=== PATIENT | female | born 1965 | race Caucasian/White ===

== ENCOUNTER 2016-06-23 22:53 | Emergency (ER) | payer MEDICARE, MEDICAID ==
[~2016-06-23 22:53] MED LIST: /PANT40TA OR; /PROM25SU RE; LAMICTAL PO; LITH300T2 OR; PROM12SU RE; SYNT100T OR
[2016-06-23] MEDS ORDERED: NORCO, ANEXSIA 5/325MG TABLET (HYDROcodone/ACETAMINOPHEN) As Ordered ONE (23:26)
--- NOTE | 2016-06-23 23:56 | EDDOCDS ---
Nurse's Notes [facility] Name: Sameera Montoya Age: 51 yrs Sex: Female : 1965 Arrival Date: 06/23/2016 Time: 22:53 Bed I1 / M1 Private MD: Damien Velásquez FPA Diagnosis: Other sprain of left index finger Presentation: 06/23 23:02 Presenting complaint: Patient states: "My finger it's swollen. I'm having a lot of pain mb9 in my finger. I've had a fungal infection in that finger before. I saw my doctor on Wednesday and he wasn't sure what to do with it". pt reports she fell last Wednesday and injured her finger. Adult Sepsis Screening: The patient does not have new or worsening altered mentation. Patient's respiratory rate is less than 22. Systolic blood pressure is greater than 100. Patient has a qSOFA score of 0- Negative Sepsis Screen. Suicide/Homicide risk assessment- the patient denies having any suicidal and/or homicidal ideations and does not present with any other emotional, behavioral or mental health complaints. Status: Patient is not a healthcare customer service or dependent. Transition of care: patient was not received from another setting of care. 23:02 Acuity: ROMY Level 4 mb9 23:02 Method Of Arrival: Walkin/Carried/Asstd mb9 Triage Assessment: 23:14 General: Appears in no apparent distress, Behavior is appropriate for age, cooperative. mb9 Pain: Location: dorsal aspect of distal phalanx of left index finger, dorsal aspect of middle phalanx of left index finger, dorsal aspect of proximal phalanx of left index finger and left index fingernail Pain currently is 8 out of 10 on a pain scale. HIV screening NA for this visit Offered previously. Musculoskeletal: Range of motion limited in DIP of left index finger and PIP of left index finger Swelling present in dorsal aspect of distal phalanx of left index finger, dorsal aspect of middle phalanx of left index finger and dorsal aspect of proximal phalanx of left index finger. 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 Tirosint 137 mcg oral cap 1 cap once daily 2. hydrochlorothiazide 12.5 mg Oral cap 1 cap once daily 3. arapepazole 20 mg twice a day 4. Vitamin B-12 500 mcg Oral tab every other day 5. montelukast 10 mg oral tab 1 tab once daily 6. magnesium oxide 400 mg Oral cap twice a day 7. sumatriptan succinate 4 mg/0.5 mL Sub-Q crtg for Migraine 8. azelastine 0.15 % (205.5 mcg) nasal spry 1 spray 2 times per day 9. lithium carbonate 300 mg Oral cap 2 caps bid 10. lithium carbonate 150 mg Oral cap bid 11. Lamictal 100 mg Oral tab 1 tab 2 times per day 12. Topamax 150 mg Oral Unknown 2 times per day 13. Wellbutrin 75 mg Oral tab 1 tab twice a day 14. clonazepam 0.5 mg Oral tab - PMHx: Agoraphobia; Asthma; Bipolar disorder; IBS; Migraines; neuropathy; Panic Attacks; Seasonal Allergies; - PSHx: Orthopedic Surgery; eye surgery; Tonsillectomy; Hysterectomy; Cholecystectomy; Gastric Bypass (2009); Gastric bypass revision; - Social history: Smoking status: Patient states former smoker of tobacco. No barriers to communication noted, The patient speaks fluent Italian. - Family history: Not pertinent. - : The pt / caregiver states he / she is not on anticoagulants. Home medication list is obtained from the patient. - Exposure Risk Screening:: None identified. Screenin:30 Screening information is obtained from the patient. Fall risk: No risks identified. ko2 Assistance ADL's: requires no assistance with activities of daily living. Abuse/DV Screen: The patient / caregiver reports he/she is: not in a situation that causes fear, pain or injury. Nutritional screening: No deficits noted. Advance Directives: Currently, there is no health care proxy. There is no active DNR order. There is no living will. There is no Power of Matte Cutter. home support is adequate. Assessment: 23:29 General: Appears in no apparent distress, comfortable, Behavior is appropriate for age, ko2 cooperative. Pain: Location: left hand Pain currently is 7 out of 10 on a pain scale. Neurological: Level of Consciousness is awake, alert, Oriented to person, place, time. Respiratory: Airway is patent Respiratory effort is even, unlabored, Respiratory pattern is regular, symmetrical. Derm: Swollen area noted on left index finger. 23:53 General: Appears in no apparent distress, comfortable, Behavior is appropriate for age, nn1 cooperative. Pain: Location: left index fingernail Pain currently is 7 out of 10 on a pain scale. Neurological: Level of Consciousness is awake, alert. Respiratory: No deficits noted. Derm: Skin is pink, warm & dry. Swollen area noted on left index finger. Vital Signs: 22:56 BP 172 / 87; Pulse 77; Resp 18 S; Temp 96.7(T); Pulse Ox 99% on R/A; Weight 78.93 kg dd6 (R); Height 5 ft. 3 in. (160.02 cm) (R); 22:56 Body Mass Index 30.82 (78.93 kg, 160.02 cm) dd6 Vitals: 22:56 Log In Time: June 23, 2016 at 22:54. dd6 ED Course: 22:56 Patient visited by Vishnu Thompson PCA. dd6 22:56 Damien Velásquez is Private Physician. dd6 22:56 Patient moved to Waiting dd6 22:57 Patient moved to Pre RCE dd6 23:07 Triage Initiated mb9 23:18 Damien Murphy PA is PHCP. mo1 23:18 Pepe Perez MD is Attending Physician. mo1 23:18 Patient moved to I1 / M1 lf1 23:23 Patient visited by Damien Murphy PA. mo1 23:30 Patient visited by Ary Pastrana RN. ko2 23:30 The patient / caregiver is instructed regarding the plan of care and ED course. ko2 23:41 [facility] Payment Agreement was scanned into [employer] and attached to record. pm4 23:42 Damien Velásquez is Referral Physician. mo1 23:42 Kyle Silva is Referral Physician. mo1 23:54 No IV's were initiated during this patient's visit. No procedures done that require nn1 assistance. left index finger deepa taped to left middle finger. Administered Medications: 23:28 Drug: HYDROcodone-acetaminophen 1 tabs [hydrocodone 5 mg-acetaminophen 325 mg tablet (1 ko2 tabs)] Route: PO; Order Results: There are currently no results for this order. Outcome: 23:43 Discharge ordered by Provider. mo1 23:55 Discharge Assessment: Patient awake, alert and oriented x 3. No cognitive and/or nn1 functional deficits noted. Patient verbalized understanding of disposition instructions. patient administered narcotics -. Discharge Assessment: patient administered narcotics - yes. Pt provided with safe discharge. The following High Risk Discharge criteria are identified: None. Discharged to home ambulatory. Condition: good Condition: stable Condition: unchanged. No special radiology studies were completed. Property :Personal belongings accompany Pt. 23:55 Patient left the ED. nn1 Signatures: Lilly Roberto,RN RN lf1 Vishnu Thompson, [employer]ACING [employer]ACHINE [employer]PERAT[employer] RES[employer]ING [employer]ACH[employer]PER[employer] dd6 Damien Murphy PA PA mo1 Ary PastranaRN RN ko2 Damien Spencer,RN RN mb9 Nilesh PaigeRN RN nn1 Maurisio Mendoza, Reg Reg pm4 MTDVanda
--- NOTE | 2016-06-23 23:56 | EDDOCDS ---
Physician Documentation [facility] Name: Sameera Montoya Age: 51 yrs Sex: Female : 1965 Arrival Date: 06/23/2016 Time: 22:53 Bed I1 / M1 Private MD: Damien Velásquez FPA Disposition: 06/23/16 23:43 Discharged to Home/Self Care. Impression: Other sprain of left index finger. - Condition is Stable. - Discharge Instructions: Finger Sprain. - Prescriptions for Ibuprofen 800 mg Oral Tablet - take 1 tablet by ORAL route every 8 hours As needed take with food; 30 tablet. - Medication Reconciliation, Local Pharmacy Hours form. - Follow up: Damien Velásquez; When: Call to arrange an appointment; Reason: Recheck today's complaints, Continuance of care. Follow up: Kyle Silva; When: Call to arrange an appointment; Reason: Recheck today's complaints, Continuance of care. - Problem is an ongoing problem. - Symptoms are unchanged. Historical: - Allergies: PENICILLINS; - Home Meds: 1. Tirosint 137 mcg oral cap 1 cap once daily 2. hydrochlorothiazide 12.5 mg Oral cap 1 cap once daily 3. arapepazole 20 mg twice a day 4. Vitamin B-12 500 mcg Oral tab every other day 5. montelukast 10 mg oral tab 1 tab once daily 6. magnesium oxide 400 mg Oral cap twice a day 7. sumatriptan succinate 4 mg/0.5 mL Sub-Q crtg for Migraine 8. azelastine 0.15 % (205.5 mcg) nasal spry 1 spray 2 times per day 9. lithium carbonate 300 mg Oral cap 2 caps bid 10. lithium carbonate 150 mg Oral cap bid 11. Lamictal 100 mg Oral tab 1 tab 2 times per day 12. Topamax 150 mg Oral Unknown 2 times per day 13. Wellbutrin 75 mg Oral tab 1 tab twice a day 14. clonazepam 0.5 mg Oral tab - PMHx: Agoraphobia; Asthma; Bipolar disorder; IBS; Migraines; neuropathy; Panic Attacks; Seasonal Allergies; - PSHx: Orthopedic Surgery; eye surgery; Tonsillectomy; Hysterectomy; Cholecystectomy; Gastric Bypass (2009); Gastric bypass revision; - Social history: Smoking status: Patient states former smoker of tobacco. No barriers to communication noted, The patient speaks fluent Amharic. - Family history: Not pertinent. - : The pt / caregiver states he / she is not on anticoagulants. Home medication list is obtained from the patient. - Exposure Risk Screening:: None identified. 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 3 in. (160.02 cm) (R); 22:56 Body Mass Index 30.82 (78.93 kg, 160.02 cm) dd6 MDM: 23:24 HYDROcodone-acetaminophen 5 mg-325 mg 1 tabs PO once ordered. mo1 23:25 Fingers Ordered. EDMS 23:36 Financial registration complete. pm4 23:41 [facility] Payment Agreement was scanned into [employer] and attached to record. pm4 23:42 Splint ordered. mo1 Administered Medications: 23:28 Drug: HYDROcodone-acetaminophen 1 tabs [hydrocodone 5 mg-acetaminophen 325 mg tablet (1 ko2 tabs)] Route: PO; Signatures: Dispatcher [employer] EDMS Damien Murphy PA PA mo1 Ary PastranaRN RN ko2 Damien Spencer,RN RN mb9 Nilesh PaigeRN RN nn1 Maurisio Mendoza, Reg Reg pm4 The chart was reviewed and I authenticate all verbal orders and agree with the evaluation and treatment provided.Attachments: 23:41 [facility] Payment Agreement pm4 MTDD
--- NOTE | 2016-06-24 08:29 | REP ---
LEFT INDEX FINGER SERIES: Four views. HISTORY: Left index finger trauma. FINDINGS: There is soft tissue swelling diffusely about the index finger. There is diffuse osteopenia. No fracture, subluxation, or opaque foreign body is seen. IMPRESSION: Soft-tissue swelling and diffuse osteopenia. No fracture seen. Signed by Kadeem Lebron MD 06/24/2016 09:40 A
--- NOTE | 2016-06-26 00:57 | EDDOCDS ---
Nurse's Notes [facility] Name: Sameera Montoya Age: 51 yrs Sex: Female : 1965 Arrival Date: 06/23/2016 Time: 22:53 Bed I1 / M1 Private MD: Damien Velásquez FPA Diagnosis: Other sprain of left index finger Presentation: 06/23 23:02 Presenting complaint: Patient states: "My finger it's swollen. I'm having a lot of pain mb9 in my finger. I've had a fungal infection in that finger before. I saw my doctor on Wednesday and he wasn't sure what to do with it". pt reports she fell last Wednesday and injured her finger. Adult Sepsis Screening: The patient does not have new or worsening altered mentation. Patient's respiratory rate is less than 22. Systolic blood pressure is greater than 100. Patient has a qSOFA score of 0- Negative Sepsis Screen. Suicide/Homicide risk assessment- the patient denies having any suicidal and/or homicidal ideations and does not present with any other emotional, behavioral or mental health complaints. Status: Patient is not a customer service administrator or dependent. Transition of care: patient was not received from another setting of care. 23:02 Acuity: ROMY Level 4 mb9 23:02 Method Of Arrival: Walkin/Carried/Asstd mb9 Triage Assessment: 23:14 General: Appears in no apparent distress, Behavior is appropriate for age, cooperative. mb9 Pain: Location: dorsal aspect of distal phalanx of left index finger, dorsal aspect of middle phalanx of left index finger, dorsal aspect of proximal phalanx of left index finger and left index fingernail Pain currently is 8 out of 10 on a pain scale. HIV screening NA for this visit Offered previously. Musculoskeletal: Range of motion limited in DIP of left index finger and PIP of left index finger Swelling present in dorsal aspect of distal phalanx of left index finger, dorsal aspect of middle phalanx of left index finger and dorsal aspect of proximal phalanx of left index finger. 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 Tirosint 137 mcg oral cap 1 cap once daily 2. hydrochlorothiazide 12.5 mg Oral cap 1 cap once daily 3. arapepazole 20 mg twice a day 4. Vitamin B-12 500 mcg Oral tab every other day 5. montelukast 10 mg oral tab 1 tab once daily 6. magnesium oxide 400 mg Oral cap twice a day 7. sumatriptan succinate 4 mg/0.5 mL Sub-Q crtg for Migraine 8. azelastine 0.15 % (205.5 mcg) nasal spry 1 spray 2 times per day 9. lithium carbonate 300 mg Oral cap 2 caps bid 10. lithium carbonate 150 mg Oral cap bid 11. Lamictal 100 mg Oral tab 1 tab 2 times per day 12. Topamax 150 mg Oral Unknown 2 times per day 13. Wellbutrin 75 mg Oral tab 1 tab twice a day 14. clonazepam 0.5 mg Oral tab - PMHx: Agoraphobia; Asthma; Bipolar disorder; IBS; Migraines; neuropathy; Panic Attacks; Seasonal Allergies; - PSHx: Orthopedic Surgery; eye surgery; Tonsillectomy; Hysterectomy; Cholecystectomy; Gastric Bypass (2009); Gastric bypass revision; - Social history: Smoking status: Patient states former smoker of tobacco. No barriers to communication noted, The patient speaks fluent Bhutanese. - Family history: Not pertinent. - : The pt / caregiver states he / she is not on anticoagulants. Home medication list is obtained from the patient. - Exposure Risk Screening:: None identified. Screenin:30 Screening information is obtained from the patient. Fall risk: No risks identified. ko2 Assistance ADL's: requires no assistance with activities of daily living. Abuse/DV Screen: The patient / caregiver reports he/she is: not in a situation that causes fear, pain or injury. Nutritional screening: No deficits noted. Advance Directives: Currently, there is no health care proxy. There is no active DNR order. There is no living will. There is no Power of Lieutenant Firefighter. home support is adequate. Assessment: 23:29 General: Appears in no apparent distress, comfortable, Behavior is appropriate for age, ko2 cooperative. Pain: Location: left hand Pain currently is 7 out of 10 on a pain scale. Neurological: Level of Consciousness is awake, alert, Oriented to person, place, time. Respiratory: Airway is patent Respiratory effort is even, unlabored, Respiratory pattern is regular, symmetrical. Derm: Swollen area noted on left index finger. 23:53 General: Appears in no apparent distress, comfortable, Behavior is appropriate for age, nn1 cooperative. Pain: Location: left index fingernail Pain currently is 7 out of 10 on a pain scale. Neurological: Level of Consciousness is awake, alert. Respiratory: No deficits noted. Derm: Skin is pink, warm & dry. Swollen area noted on left index finger. Vital Signs: 22:56 BP 172 / 87; Pulse 77; Resp 18 S; Temp 96.7(T); Pulse Ox 99% on R/A; Weight 78.93 kg dd6 (R); Height 5 ft. 3 in. (160.02 cm) (R); 22:56 Body Mass Index 30.82 (78.93 kg, 160.02 cm) dd6 Vitals: 22:56 Log In Time: June 23, 2016 at 22:54. dd6 ED Course: 22:56 Patient visited by Vishnu Thompson PCA. dd6 22:56 Damien Velásquez is Private Physician. dd6 22:56 Patient moved to Waiting dd6 22:57 Patient moved to Pre RCE dd6 23:07 Triage Initiated mb9 23:18 Damien Murphy PA is PHCP. mo1 23:18 Pepe Perez MD is Attending Physician. mo1 23:18 Patient moved to I1 / M1 lf1 23:23 Patient visited by Damien Murphy PA. mo1 23:30 Patient visited by Ary Pastrana RN. ko2 23:30 The patient / caregiver is instructed regarding the plan of care and ED course. ko2 23:41 [facility] Payment Agreement was scanned into [employer] and attached to record. pm4 23:42 Damien Velásquez is Referral Physician. mo1 23:42 Kyle Silva is Referral Physician. mo1 23:54 No IV's were initiated during this patient's visit. No procedures done that require nn1 assistance. left index finger deepa taped to left middle finger. 06/24 02:25 T-Sheet-- Draft Copy was scanned into [employer] and attached to record. hs2 08:43 Fingers Returned. EDMS Administered Medications: 06/23 23:28 Drug: HYDROcodone-acetaminophen 1 tabs [hydrocodone 5 mg-acetaminophen 325 mg tablet (1 ko2 tabs)] Route: PO; Order Results: Radiology Order: Fingers Test: Fingers REASON FOR EXAMINATION: left index trauma; LEFT INDEX FINGER SERIES: Four views.; ; HISTORY: Left index finger trauma.; ; FINDINGS: There is soft tissue swelling diffusely about the index finger. There; is diffuse osteopenia. No fracture, subluxation, or opaque foreign body is; seen.; ; IMPRESSION: Soft-tissue swelling and diffuse osteopenia. No fracture seen.; ; ; Signed by; Kadeem Lebron MD 06/24/2016 09:40 A; Outcome: 23:43 Discharge ordered by Provider. mo1 23:55 Discharge Assessment: Patient awake, alert and oriented x 3. No cognitive and/or nn1 functional deficits noted. Patient verbalized understanding of disposition instructions. patient administered narcotics -. Discharge Assessment: patient administered narcotics - yes. Pt provided with safe discharge. The following High Risk Discharge criteria are identified: None. Discharged to home ambulatory. Condition: good Condition: stable Condition: unchanged. No special radiology studies were completed. Property :Personal belongings accompany Pt. 23:55 Patient left the ED. nn1 Signatures: Dispatcher [employer] EDMS Lilly Roberto,RN RN lf1 Vishnu Thompson, KAIWHAKAHAERE KAIWHAKAHAERE dd6 Damien Murphy PA PA mo1 Ary Pastrana RN RN ko2 Damien Spencer,TOOTIE RN [id number] Nilesh Paige RN RN nn1 Kenia Rosales, Reg Reg hs2 Maurisio Mendoza, Reg Reg pm4 Chart Complete MTDD
--- NOTE | 2016-06-26 00:57 | EDDOCDS ---
Physician Documentation [facility] Name: Sameera Montoya Age: 51 yrs Sex: Female : 1965 Arrival Date: 06/23/2016 Time: 22:53 Bed I1 / M1 Private MD: Damien Velásquez FPA Disposition: 06/23/16 23:43 Discharged to Home/Self Care. Impression: Other sprain of left index finger. - Condition is Stable. - Discharge Instructions: Finger Sprain. - Prescriptions for Ibuprofen 800 mg Oral Tablet - take 1 tablet by ORAL route every 8 hours As needed take with food; 30 tablet. - Medication Reconciliation, Local Pharmacy Hours form. - Follow up: Damien Velásquez; When: Call to arrange an appointment; Reason: Recheck today's complaints, Continuance of care. Follow up: Kyle Silva; When: Call to arrange an appointment; Reason: Recheck today's complaints, Continuance of care. - Problem is an ongoing problem. - Symptoms are unchanged. Historical: - Allergies: PENICILLINS; - Home Meds: 1. Tirosint 137 mcg oral cap 1 cap once daily 2. hydrochlorothiazide 12.5 mg Oral cap 1 cap once daily 3. arapepazole 20 mg twice a day 4. Vitamin B-12 500 mcg Oral tab every other day 5. montelukast 10 mg oral tab 1 tab once daily 6. magnesium oxide 400 mg Oral cap twice a day 7. sumatriptan succinate 4 mg/0.5 mL Sub-Q crtg for Migraine 8. azelastine 0.15 % (205.5 mcg) nasal spry 1 spray 2 times per day 9. lithium carbonate 300 mg Oral cap 2 caps bid 10. lithium carbonate 150 mg Oral cap bid 11. Lamictal 100 mg Oral tab 1 tab 2 times per day 12. Topamax 150 mg Oral Unknown 2 times per day 13. Wellbutrin 75 mg Oral tab 1 tab twice a day 14. clonazepam 0.5 mg Oral tab - PMHx: Agoraphobia; Asthma; Bipolar disorder; IBS; Migraines; neuropathy; Panic Attacks; Seasonal Allergies; - PSHx: Orthopedic Surgery; eye surgery; Tonsillectomy; Hysterectomy; Cholecystectomy; Gastric Bypass (2009); Gastric bypass revision; - Social history: Smoking status: Patient states former smoker of tobacco. No barriers to communication noted, The patient speaks fluent Korean. - Family history: Not pertinent. - : The pt / caregiver states he / she is not on anticoagulants. Home medication list is obtained from the patient. - Exposure Risk Screening:: None identified. 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 3 in. (160.02 cm) (R); 22:56 Body Mass Index 30.82 (78.93 kg, 160.02 cm) dd6 MDM: 23:24 HYDROcodone-acetaminophen 5 mg-325 mg 1 tabs PO once ordered. mo1 23:25 Fingers Ordered. EDMS 23:36 Financial registration complete. pm4 23:41 [facility] Payment Agreement was scanned into [employer] and attached to record. pm4 23:42 Splint ordered. mo1 06/24 02:25 T-Sheet-- Draft Copy was scanned into [employer] and attached to record. hs2 Administered Medications: 06/23 23:28 Drug: HYDROcodone-acetaminophen 1 tabs [hydrocodone 5 mg-acetaminophen 325 mg tablet (1 ko2 tabs)] Route: PO; Signatures: Dispatcher [employer] EDMS Damien Murphy PA PA mo1 Ary Pastrana RN RN ko2 Damien Spencer RN RN mb9 Nilesh Paige RN RN nn1 Kenia Rosales, Reg Reg hs2 Maurisio Mendoza, Reg Reg pm4 The chart was reviewed and I authenticate all verbal orders and agree with the evaluation and treatment provided.Attachments: 23:41 [facility] Payment Agreement pm4 06/24 02:25 T-Sheet-- Draft Copy hs2 Chart Complete MTDD
--- NOTE | 2016-06-26 00:57 | EDDOCDS ---
Physician Documentation [facility] Name: Sameera Montoya Age: 51 yrs Sex: Female : 1965 Arrival Date: 06/23/2016 Time: 22:53 Bed I1 / M1 Private MD: Damien Velásquez FPA Disposition: 06/23/16 23:43 Discharged to Home/Self Care. Impression: Other sprain of left index finger. - Condition is Stable. - Discharge Instructions: Finger Sprain. - Prescriptions for Ibuprofen 800 mg Oral Tablet - take 1 tablet by ORAL route every 8 hours As needed take with food; 30 tablet. - Medication Reconciliation, Local Pharmacy Hours form. - Follow up: Damien Velásquez; When: Call to arrange an appointment; Reason: Recheck today's complaints, Continuance of care. Follow up: Kyle Silva; When: Call to arrange an appointment; Reason: Recheck today's complaints, Continuance of care. - Problem is an ongoing problem. - Symptoms are unchanged. Historical: - Allergies: PENICILLINS; - Home Meds: 1. Tirosint 137 mcg oral cap 1 cap once daily 2. hydrochlorothiazide 12.5 mg Oral cap 1 cap once daily 3. arapepazole 20 mg twice a day 4. Vitamin B-12 500 mcg Oral tab every other day 5. montelukast 10 mg oral tab 1 tab once daily 6. magnesium oxide 400 mg Oral cap twice a day 7. sumatriptan succinate 4 mg/0.5 mL Sub-Q crtg for Migraine 8. azelastine 0.15 % (205.5 mcg) nasal spry 1 spray 2 times per day 9. lithium carbonate 300 mg Oral cap 2 caps bid 10. lithium carbonate 150 mg Oral cap bid 11. Lamictal 100 mg Oral tab 1 tab 2 times per day 12. Topamax 150 mg Oral Unknown 2 times per day 13. Wellbutrin 75 mg Oral tab 1 tab twice a day 14. clonazepam 0.5 mg Oral tab - PMHx: Agoraphobia; Asthma; Bipolar disorder; IBS; Migraines; neuropathy; Panic Attacks; Seasonal Allergies; - PSHx: Orthopedic Surgery; eye surgery; Tonsillectomy; Hysterectomy; Cholecystectomy; Gastric Bypass (2009); Gastric bypass revision; - Social history: Smoking status: Patient states former smoker of tobacco. No barriers to communication noted, The patient speaks fluent Korean. - Family history: Not pertinent. - : The pt / caregiver states he / she is not on anticoagulants. Home medication list is obtained from the patient. - Exposure Risk Screening:: None identified. 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 3 in. (160.02 cm) (R); 22:56 Body Mass Index 30.82 (78.93 kg, 160.02 cm) dd6 MDM: 23:24 HYDROcodone-acetaminophen 5 mg-325 mg 1 tabs PO once ordered. mo1 23:25 Fingers Ordered. EDMS 23:36 Financial registration complete. pm4 23:41 [facility] Payment Agreement was scanned into [employer]un[employer] and attached to record. pm4 23:42 Splint ordered. mo1 06/24 02:25 T-Sheet-- Draft Copy was scanned into [employer]un[employer] and attached to record. hs2 Administered Medications: 06/23 23:28 Drug: HYDROcodone-acetaminophen 1 tabs [hydrocodone 5 mg-acetaminophen 325 mg tablet (1 ko2 tabs)] Route: PO; Signatures: Dispatcher [employer] EDMS Damien Murphy PA PA mo1 Ary Pastrana RN RN ko2 Damien Spencer RN RN mb9 Nilesh Paige RN RN nn1 Kenia Rosales, Reg Reg hs2 Maurisio Mendoza, Reg Reg pm4 The chart was reviewed and I authenticate all verbal orders and agree with the evaluation and treatment provided.Attachments: 23:41 [facility] Payment Agreement pm4 06/24 02:25 T-Sheet-- Draft Copy hs2 Chart Complete MTDD
== END 2016-06-23 23:55 | disposition home or self-care (01) ==
LOC: M ED 22:53
DX: S63.611A Unspecified sprain of left index finger, initial encounter (principal); W19.XXXA Unspecified fall, initial encounter; Y92.019 Unspecified place in single-family (private) house as the place of occurrence of the external cause; Y93.89 Activity, other specified; Y99.8 Other external cause status; F40.00 Agoraphobia, unspecified; J45.909 Unspecified asthma, uncomplicated; F31.9 Bipolar disorder, unspecified; K58.9 Irritable bowel syndrome, unspecified; G43.909 Migraine, unspecified, not intractable, without status migrainosus; G60.9 Hereditary and idiopathic neuropathy, unspecified; Z98.84 Bariatric surgery status; Z79.899 Other long term (current) drug therapy; Z88.0 Allergy status to penicillin; Z87.891 Personal history of nicotine dependence

== ENCOUNTER 2016-08-24 11:45 | Outpatient (RCR) | payer MEDICARE, MEDICAID | END 2016-08-28 | LOC: M PT 11:45 | PROVIDERS: ATTEND Psychiatry & Neurology Neurology | DX: Z51.89 Encounter for other specified aftercare (principal); R26.81 Unsteadiness on feet | CPT/HCPCS: 97110; 97161; G8978; G8979 ==

== ENCOUNTER 2016-09-23 07:50 | Outpatient (RCR) | payer MEDICARE, MEDICAID | END 2016-09-27 | disposition home or self-care (01) | LOC: M PT 07:50 | PROVIDERS: ATTEND Psychiatry & Neurology Neurology | DX: Z51.89 Encounter for other specified aftercare (principal); R26.81 Unsteadiness on feet | CPT/HCPCS: 97110; 97112; 97140; G8979; G8980 ==

== ENCOUNTER → 2016-12-22 | Outpatient (CLI) | payer MEDICARE, MEDICAID ==
[2016-12-22 06:57] LABS: BASO # 0.1 K/mm3 (0.0-0.2); BASO % 0.9 % (0.0-1.0); EOS # 0.3 K/mm3 (0.0-0.50); EOS % 4.1 % (0.0-3.0); LARGE UNSTAINED CELL # 0.1 K/mm3 (0.0-0.4); LARGE UNSTAINED CELL % 1.4 % (0.0-4.0); LYMPH # 2.3 K/mm3 (1.5-4.5); LYMPH % 33.4 % (24.0-44.0); MEAN CORPUSCULAR HEMOGLOBIN 30.3 pg (27.0-33.0); MONO # 0.4 K/mm3 (0.0-0.8); MONO % 5.9 % (0.0-5.0); NEUTROPHILS # 3.6 K/mm3 (1.8-7.7); NEUTROPHILS % 54.3 % (36.0-66.0); PLATELET COUNT, AUTOMATED 293 k/mm3 (150-450); RED CELL DISTRIBUTION WIDTH 12.9 % (11.5-14.5); WHITE BLOOD COUNT 6.6 K/mm3 (4.0-10.0)
[2016-12-22 07:32] LABS: FERRITIN 20 NG/ML (8-252); MAGNESIUM LEVEL 2.5 MG/DL (1.8-2.4); PHOSPHORUS LEVEL 3.8 MG/DL (2.5-4.9)
[2016-12-22 10:12] LABS: ALBUMIN 3.7 GM/DL (3.2-5.2); ALBUMIN/GLOBULIN RATIO 1.61 (1.00-1.93); ALKALINE PHOSPHATASE 61 U/L (45-117); ALT/SGPT 26 U/L (12-78); ANION GAP 7 MEQ/L (8-16); AST/SGOT 16 U/L (15-37); BILIRUBIN,TOTAL 0.3 MG/DL (0.2-1.0); BLOOD UREA NITROGEN 13 MG/DL (7-18); CALCIUM LEVEL 9.1 MG/DL (8.5-10.1); CARBON DIOXIDE LEVEL 24 MEQ/L (21-32); CHLORIDE LEVEL 105 MEQ/L (98-107); CREATININE FOR GFR 0.79 MG/DL (0.55-1.02); GLOMERULAR FILTRATION RATE > 60.0 (>51); GLUCOSE, FASTING 124 MG/DL (70-105); POTASSIUM SERUM 3.8 MEQ/L (3.5-5.1); SODIUM LEVEL 136 MEQ/L (136-145)
[2016-12-22 10:43] LABS: VITAMIN B12 LEVEL 548 PG/ML (247-911)
[2016-12-22 10:54] LABS: PRETREATED FOLATE FOR RBCFOL > 24.0 NG/ML
== END ==
LOC: M LAB 06:24
PROVIDERS: ATTEND Surgery
DX: K91.2 Postsurgical malabsorption, not elsewhere classified (principal); E55.9 Vitamin D deficiency, unspecified; Z98.84 Bariatric surgery status

== ENCOUNTER 2017-02-24 07:00 | Outpatient (RCR) | payer MEDICARE, MEDICAID | END 2017-02-27 | LOC: M OT 07:00 | PROVIDERS: ATTEND Psychiatry & Neurology Neurology | DX: Z51.89 Encounter for other specified aftercare (principal); G56.23 Lesion of ulnar nerve, bilateral upper limbs; M62.84 Sarcopenia | CPT/HCPCS: 97035; 97110; 97140; 97165; G8984; G8985 ==

== ENCOUNTER 2017-03-31 10:38 | Outpatient (RCR) | payer MEDICARE, MEDICAID | END 2017-04-29 | LOC: M OT 10:38 | PROVIDERS: ATTEND Psychiatry & Neurology Neurology | DX: Z51.89 Encounter for other specified aftercare (principal); G56.23 Lesion of ulnar nerve, bilateral upper limbs; M62.81 Muscle weakness (generalized) | CPT/HCPCS: 97110; G8984; G8985; G8986 ==

== ENCOUNTER → 2017-05-02 | Outpatient (CLI) | payer MEDICARE, MEDICAID ==
[2017-05-02 10:25] LABS: MAGNESIUM LEVEL 2.6 MG/DL (1.8-2.4)
[2017-05-02 10:28] LABS: LITHIUM LEVEL 1.24 MEQ/L (0.60-1.20)
== END ==
LOC: M LAB 08:56
PROVIDERS: ATTEND Physician Assistant
DX: I10 Essential (primary) hypertension (principal); E83.41 Hypermagnesemia

== ENCOUNTER → 2017-06-22 | Outpatient (CLI) | payer MEDICARE, MEDICAID ==
[2017-06-22 08:08] LABS: CREATININE FOR GFR 0.88 MG/DL (0.55-1.02); GLOMERULAR FILTRATION RATE > 60.0 (>51)
[2017-06-22 08:08] LABS: BLOOD UREA NITROGEN 12 MG/DL (7-18)
[2017-06-22 08:16] LABS: LITHIUM LEVEL 1.39 MEQ/L (0.60-1.20)
== END ==
LOC: M LAB 06:53
DX: Z51.81 Encounter for therapeutic drug level monitoring (principal); Z79.899 Other long term (current) drug therapy
CPT/HCPCS: 82565

== ENCOUNTER → 2017-06-30 | Outpatient (CLI) | payer MEDICARE, MEDICAID ==
[2017-06-30 08:30] LABS: LITHIUM LEVEL 1.08 MEQ/L (0.60-1.20)
== END ==
LOC: M LAB 07:17
DX: Z51.81 Encounter for therapeutic drug level monitoring (principal); Z79.899 Other long term (current) drug therapy
CPT/HCPCS: 80178

== ENCOUNTER → 2017-11-11 | Outpatient (CLI) | payer MEDICARE, MEDICAID ==
[~2017-11-11] MED LIST changes: -/PANT40TA OR; -/PROM25SU RE; +E-Z-GAS II EFFERVESCENT PACKET (SODIUM BICARB./CITRIC ACID/SIMETHICONE) As Ordered; +E-Z-HD 98% w/w 340GM SUSP BTL As Ordered; +E-Z-PAQUE 96% w/w SUSP 176GM BTL As Ordered; -LAMICTAL PO; -LITH300T2 OR; -PROM12SU RE; -SYNT100T OR
== END ==
LOC: M RAD 10:38
DX: R10.13 Epigastric pain (principal); R11.0 Nausea
CPT/HCPCS: 74241

== ENCOUNTER → 2017-11-18 | Outpatient (CLI) | payer MEDICARE, MEDICAID ==
[2017-11-18 08:46] LABS: LITHIUM LEVEL 1.07 MEQ/L (0.60-1.20)
== END ==
LOC: M LAB 07:20
DX: Z51.81 Encounter for therapeutic drug level monitoring (principal); Z79.899 Other long term (current) drug therapy
CPT/HCPCS: 80178

== ENCOUNTER → 2018-04-06 | Outpatient (REF) | payer MEDICARE, MEDICAID ==
[2018-04-06 20:02] LABS: INFLUENZA A AMPLIFICATION NEGATIVE (NEGATIVE); INFLUENZA B AMPLIFICATION NEGATIVE (NEGATIVE)
== END ==
LOC: M LAB REF 19:05
DX: J11.1 Influenza due to unidentified influenza virus with other respiratory manifestations (principal)
CPT/HCPCS: 87502

== ENCOUNTER 2018-07-12 07:06 | Emergency (ER) | payer MEDICARE, MEDICAID ==
[~2018-07-12] VITALS: Ht 160 cm; Wt 80.5 kg
[2018-07-12 07:06] VITALS: BP 174/81
[~2018-07-12 07:06] MED LIST changes: +/PANT40TA OR; +/PROM25SU RE; -E-Z-GAS II EFFERVESCENT PACKET (SODIUM BICARB./CITRIC ACID/SIMETHICONE) As Ordered; -E-Z-HD 98% w/w 340GM SUSP BTL As Ordered; -E-Z-PAQUE 96% w/w SUSP 176GM BTL As Ordered; +LAMICTAL PO; +LITH300T2 OR; +PROM12SU RE; +SYNT100T OR
[2018-07-12] MEDS ORDERED: LITHIUM (07:17)
[2018-07-12] MEDS ORDERED: LINZ290C (07:17)
[2018-07-12] MEDS ORDERED: BUPROPION (07:17)
[2018-07-12] MEDS ORDERED: LITH300C (07:17)
[2018-07-12] MEDS ORDERED: HYDR12CA (07:17)
[2018-07-12] MEDS ORDERED: SING10TA32 (07:17)
[2018-07-12] MEDS ORDERED: AMLO2.5T3 (07:17)
[2018-07-12] MEDS ORDERED: ACIP1TAB (07:17)
[2018-07-12] MEDS ORDERED: [UNRECOGNIZED DRUG - CODE] (07:17)
--- NOTE | 2018-07-12 08:30 | REP ---
Right knee five views : There is no fracture or dislocation. Mineralization and joint spaces are normal. There are no calcifications or foreign bodies. Impression: Negative right knee . Electronically Signed by Mateo Li MD 07/12/2018 08:22 A
== END 2018-07-12 08:50 | disposition home or self-care (01) ==
LOC: M ED 07:06
DX: S80.01XA Contusion of right knee, initial encounter (principal); W19.XXXA Unspecified fall, initial encounter

== ENCOUNTER → 2018-10-27 | Outpatient (CLI) | payer MEDICARE, MEDICAID ==
[~2018-10-27] MED LIST changes: -/PANT40TA OR; +ACIP1TAB; +AMLO2.5T3; +BUPROPION; +HYDR12CA; +LINZ290C; +LITH300C; +LITHIUM; +PROT1TAB2 OR; +SING10TA32; +[UNRECOGNIZED DRUG - CODE]
[2018-10-27 13:26] LABS: ALBUMIN 3.9 GM/DL (3.2-5.2); BLOOD UREA NITROGEN 11 MG/DL (7-18); CALCIUM LEVEL 9.6 MG/DL (8.5-10.1); CARBON DIOXIDE LEVEL 23 MEQ/L (21-32); CHLORIDE LEVEL 109 MEQ/L (98-107); CREATININE FOR GFR 0.96 MG/DL (0.55-1.30); FREE T4 1.09 NG/DL (0.76-1.46); GLOMERULAR FILTRATION RATE > 60.0 (>51); GLUCOSE, FASTING 100 MG/DL (70-100); POTASSIUM SERUM 4.2 MEQ/L (3.5-5.1); PTH INTACT 148.7 PG/ML (18.5-88.0); SODIUM LEVEL 139 MEQ/L (136-145); THYROID STIMULATING HORMONE 0.119 uIU/ML (0.358-3.740); TOTAL 25(OH) VITAMIN D 39.3 NG/ML (30.0-100.0)
== END ==
LOC: M WUC 09:21
PROVIDERS: ATTEND Physician Assistant
DX: E55.9 Vitamin D deficiency, unspecified (principal); E16.2 Hypoglycemia, unspecified; E03.9 Hypothyroidism, unspecified; M85.80 Other specified disorders of bone density and structure, unspecified site; E21.3 Hyperparathyroidism, unspecified; K59.00 Constipation, unspecified; R14.0 Abdominal distension (gaseous); K44.9 Diaphragmatic hernia without obstruction or gangrene; K21.9 Gastro-esophageal reflux disease without esophagitis; N81.6 Rectocele; Z79.899 Other long term (current) drug therapy

== ENCOUNTER → 2018-10-27 | Outpatient (CLI) | payer MEDICARE, MEDICAID ==
[2018-10-27 13:19] LABS: BLOOD UREA NITROGEN 11 MG/DL (7-18); CREATININE FOR GFR 0.96 MG/DL (0.55-1.30); GLOMERULAR FILTRATION RATE > 60.0 (>51); LITHIUM LEVEL 1.24 MEQ/L (0.60-1.20)
== END ==
LOC: M WUC 09:10
PROVIDERS: ATTEND Psychiatry & Neurology Psychiatry
DX: Z79.899 Other long term (current) drug therapy (principal)

== ENCOUNTER → 2018-10-27 | Outpatient (CLI) | payer MEDICARE, MEDICAID ==
[2018-10-27 13:18] LABS: FERRITIN 109 NG/ML (8-252); IRON (FE) 99 UG/DL (50-170); PERCENT SATURATION 31.1 % (13.2-45.0); TOTAL IRON BINDING CAPACITY 318 UG/DL (250-450)
[2018-10-27 13:24] LABS: VITAMIN B12 LEVEL > 2000 PG/ML (247-911)
== END ==
LOC: M WUC 09:17
PROVIDERS: ATTEND Internal Medicine Gastroenterology
DX: K59.00 Constipation, unspecified (principal); R14.0 Abdominal distension (gaseous); K44.9 Diaphragmatic hernia without obstruction or gangrene; K21.9 Gastro-esophageal reflux disease without esophagitis; N81.6 Rectocele

== ENCOUNTER → 2018-10-27 | Outpatient (CLI) | payer MEDICARE, MEDICAID ==
[2018-10-27 13:21] LABS: ALBUMIN 4.1 GM/DL (3.2-5.2); ALT/SGPT 30 U/L (12-78); BILIRUBIN,TOTAL 0.5 MG/DL (0.2-1.0); BLOOD UREA NITROGEN 11 MG/DL (7-18); CARBON DIOXIDE LEVEL 24 MEQ/L (21-32); CHLORIDE LEVEL 109 MEQ/L (98-107); CHOLESTEROL LEVEL 209 MG/DL (<200); CHOLESTEROL RISK RATIO 3.073 (<5); CREATININE FOR GFR 0.91 MG/DL (0.55-1.30); GLOMERULAR FILTRATION RATE > 60.0 (>51); GLUCOSE, FASTING 95 MG/DL (70-100); HDL CHOLESTEROL 68 MG/DL (>40); LDL CHOLESTEROL 123 MG/DL (<100); NON-HDL-C 141 MG/DL; POTASSIUM SERUM 4.5 MEQ/L (3.5-5.1); SODIUM LEVEL 138 MEQ/L (136-145); TOTAL PROTEIN 6.6 GM/DL (6.4-8.2); TRIGLYCERIDES LEVEL 92 MG/DL (<150)
== END ==
LOC: M WUC 09:07
PROVIDERS: ATTEND Physician Assistant
DX: I10 Essential (primary) hypertension (principal); E78.5 Hyperlipidemia, unspecified; E83.52 Hypercalcemia; F41.0 Panic disorder [episodic paroxysmal anxiety]

== ENCOUNTER → 2019-01-10 | Outpatient (CLI) | payer MEDICARE, MEDICAID ==
[2019-01-10 08:13] LABS: BLOOD UREA NITROGEN 9 MG/DL (7-18); CREATININE FOR GFR 0.89 MG/DL (0.55-1.30); GLOMERULAR FILTRATION RATE > 60.0 (>51); LITHIUM LEVEL 1.18 MEQ/L (0.60-1.20)
== END ==
LOC: M LAB 07:07
PROVIDERS: ATTEND Psychiatry & Neurology Psychiatry
DX: Z79.899 Other long term (current) drug therapy (principal); R19.7 Diarrhea, unspecified

== ENCOUNTER → 2019-01-10 | Outpatient (CLI) | payer MEDICARE, MEDICAID | LOC: M LAB 07:10 | PROVIDERS: ATTEND Internal Medicine Gastroenterology | DX: R19.7 Diarrhea, unspecified (principal) ==

== ENCOUNTER → 2019-01-20 | Outpatient (CLI) | payer MEDICARE, MEDICAID ==
[2019-01-20 18:14] LABS: FREE T4 1.65 NG/DL (0.76-1.46); THYROID STIMULATING HORMONE 0.009 uIU/ML (0.358-3.740)
== END ==
LOC: M LAB 16:49
PROVIDERS: ATTEND Physician Assistant
DX: E03.9 Hypothyroidism, unspecified (principal)

== ENCOUNTER → 2019-01-20 | Outpatient (CLI) | payer MEDICARE, MEDICAID ==
[2019-01-20 18:02] LABS: HEMATOCRIT 40.9 % (36.0-47.0); HEMOGLOBIN 13.7 g/dl (12.0-15.5); MEAN CORPUSCULAR HGB CONC 33.5 g/dl (32.0-36.5); MEAN CORPUSCULAR VOLUME 86.5 fl (80.0-96.0); PLATELET COUNT, AUTOMATED 421 10^3/uL (150-450); RED BLOOD COUNT 4.73 10^6/uL (4.00-5.40); WHITE BLOOD COUNT 9.7 10^3/uL (4.0-10.0)
[2019-01-20 18:08] LABS: ALBUMIN 4.3 GM/DL (3.2-5.2); ALT/SGPT 22 U/L (12-78); BILIRUBIN,TOTAL 0.4 MG/DL (0.2-1.0); BLOOD UREA NITROGEN 13 MG/DL (7-18); C REACTIVE PROTEIN QUANTITATIV < 0.30 MG/DL (0.00-0.30); CALCIUM LEVEL 10.1 MG/DL (8.5-10.1); CARBON DIOXIDE LEVEL 24 MEQ/L (21-32); CHLORIDE LEVEL 103 MEQ/L (98-107); CREATININE FOR GFR 1.03 MG/DL (0.55-1.30); GLOMERULAR FILTRATION RATE 59.4 (>51); GLUCOSE, FASTING 84 MG/DL (70-100); LIPASE 312 U/L (73-393); POTASSIUM SERUM 3.8 MEQ/L (3.5-5.1); SODIUM LEVEL 135 MEQ/L (136-145); TOTAL PROTEIN 7.1 GM/DL (6.4-8.2)
[2019-01-20 19:37] LABS: ERYTHROCYTE SEDIMENTATION RATE 10 mm/hr (0-30)
== END ==
LOC: M LAB 16:55
PROVIDERS: ATTEND Internal Medicine Gastroenterology
DX: R10.13 Epigastric pain (principal); R14.0 Abdominal distension (gaseous); K59.1 Functional diarrhea; R63.4 Abnormal weight loss; E03.9 Hypothyroidism, unspecified

== ENCOUNTER → 2019-01-31 | Outpatient (CLI) | payer MEDICARE, MEDICAID ==
--- NOTE | 2019-02-01 10:01 | REP ---
Clinical: Epigastric and abdominal pain with nausea and diarrhea. Technique: Upright view of the chest with supine and upright views of the abdomen and pelvis. Findings: Frontal upright view of the chest demonstrates no acute cardiopulmonary process or free air below the diaphragm to suspect pneumoperitoneum. Supine and upright views of the abdomen and pelvis demonstrate nonspecific bowel gas pattern without obstruction or perforation. Evidence for prior cholecystectomy and gastric bypass surgery noted. No organomegaly. No abnormal calcifications. Skeletal structures normal for age. Impression: Nonspecific bowel gas pattern. Electronically Signed by Yosvany Simeon MD 01/31/2019 04:47 P
== END ==
LOC: M RAD 16:09
PROVIDERS: ATTEND Nurse Practitioner
DX: R10.13 Epigastric pain (principal); R11.0 Nausea; R19.7 Diarrhea, unspecified; Z98.84 Bariatric surgery status; Z90.49 Acquired absence of other specified parts of digestive tract

== ENCOUNTER → 2019-02-21 | Outpatient (CLI) | payer MEDICARE, MEDICAID ==
--- NOTE | 2019-02-24 15:30 | DEXA ---
AP SPINE L1 - L4 1.101 -0.8 0.0 LT FEMUR TOTAL 0.729 -2.2 -1.6 LT NECK 0.767 -1.9 -0.9 RT FEMUR TOTAL 0.798 -1.7 -1.0 RT NECK 0.847 -1.4 -0.4 TOTAL BODY TOTAL OTHER COMMENTS: Normal bone densitometry of the spine. There is low bone density of the hips. The density of the spine has decreased 8.6% since the initial exam on 03/23/2012. The spine density has increased 0.5% since the most recent exam on 02/13/2017. The density of the left hip has decreased 13.8% since the initial exam on 03/23/2012. The density of the left hip has decreased 3.2% since the most recent exam on 02/13/2017. The density of the right hip has decreased 11.3% since the initial exam on 03/23/2012. The density of the right hip has decreased 4.0% since the most recent exam on 02/13/2017. FOLLOW-UP: Recommendation for the next bone density exam: 2 years.. SOFÍAD
== END ==
LOC: M WHC 13:08
PROVIDERS: ATTEND Physician Assistant
DX: M81.0 Age-related osteoporosis without current pathological fracture (principal)

== ENCOUNTER → 2019-03-01 | Outpatient (CLI) | payer MEDICARE, MEDICAID ==
[2019-03-01 18:52] LABS: HEMOGLOBIN A1c 5.1 %
[2019-03-01 19:09] LABS: ALBUMIN 3.6 GM/DL (3.2-5.2); BLOOD UREA NITROGEN 9 MG/DL (7-18); CALCIUM LEVEL 10.1 MG/DL (8.5-10.1); CARBON DIOXIDE LEVEL 25 MEQ/L (21-32); CHLORIDE LEVEL 112 MEQ/L (98-107); CREATININE FOR GFR 0.95 MG/DL (0.55-1.30); FREE T4 1.32 NG/DL (0.76-1.46); GLOMERULAR FILTRATION RATE > 60.0 (>51); GLUCOSE, FASTING 92 MG/DL (70-100); POTASSIUM SERUM 4.3 MEQ/L (3.5-5.1); SODIUM LEVEL 143 MEQ/L (136-145); THYROID STIMULATING HORMONE 0.011 uIU/ML (0.358-3.740); TOTAL 25(OH) VITAMIN D 43.2 NG/ML (30.0-100.0)
== END ==
LOC: M LAB 17:47
PROVIDERS: ATTEND Physician Assistant
DX: E55.9 Vitamin D deficiency, unspecified (principal); E16.2 Hypoglycemia, unspecified; E03.9 Hypothyroidism, unspecified; M85.80 Other specified disorders of bone density and structure, unspecified site; E21.3 Hyperparathyroidism, unspecified

== ENCOUNTER → 2019-03-15 | Outpatient (CLI) | payer MEDICARE, MEDICAID ==
[2019-03-15 08:03] LABS: BLOOD UREA NITROGEN 8 MG/DL (7-18); CREATININE FOR GFR 0.91 MG/DL (0.55-1.30); GLOMERULAR FILTRATION RATE > 60.0 (>51); LITHIUM LEVEL 1.48 MEQ/L (0.60-1.20)
== END ==
LOC: M LAB 07:02
PROVIDERS: ATTEND Physician Assistant
DX: Z79.899 Other long term (current) drug therapy (principal)

== ENCOUNTER → 2019-03-21 | Outpatient (REF) | payer MEDICARE, MEDICAID | LOC: M SFHCLERA 13:40 | PROVIDERS: ATTEND Physician Assistant | DX: R30.0 Dysuria (principal) | CPT/HCPCS: 81002; 87088; 87186; G0463 ==

== ENCOUNTER 2019-04-26 15:18 | Emergency (ER) | payer MEDICARE, MEDICAID ==
[~2019-04-26] VITALS: Ht 160 cm; Wt 71.6 kg
[2019-04-26] MEDS ORDERED: CLON0.5T2 (15:56)
[2019-04-26] MEDS ORDERED: TROK1CAP7 PO (15:56)
[2019-04-26] MEDS ORDERED: GNP1000C11 PO (15:56)
[2019-04-26] MEDS ORDERED: PROC5TA (15:56)
[2019-04-26] MEDS ORDERED: MM S100C PO (15:56)
[2019-04-26] MEDS ORDERED: QC F0.52 PO (15:56)
[2019-04-26] MEDS ORDERED: TIRO112C3 (15:56)
[2019-04-26] MEDS ORDERED: BUPR75TA5 (15:56)
[2019-04-26] MEDS ORDERED: LAMO100T3 (15:56)
[2019-04-26] MEDS ORDERED: SUMA6KIT SC (15:56)
[2019-04-26] MEDS ORDERED: MAGN400T2 PO (15:56)
[2019-04-26] MEDS ORDERED: B-2100TA PO (15:56)
[2019-04-26] MEDS ORDERED: NS 1,000 ML IV ONE (16:30)
[2019-04-26] MEDS ORDERED: KETOROLAC 30 MG/ML VIAL (J1885) IV ONE (16:30)
[2019-04-26 16:48] LABS: BASO # 0.1 10^3/uL (0.0-0.2); BASO % 0.9 % (0.0-1.0); EOS # 0.3 10^3/uL (0.0-0.5); HEMATOCRIT 39.7 % (36.0-47.0); HEMOGLOBIN 12.9 g/dl (12.0-15.5); LYMPH # 2.7 10^3/uL (1.5-5.0); LYMPH % 31.5 % (24.0-44.0); MEAN CORPUSCULAR HEMOGLOBIN 29.5 pg (27.0-33.0); MEAN CORPUSCULAR HGB CONC 32.5 g/dl (32.0-36.5); MEAN CORPUSCULAR VOLUME 90.6 fl (80.0-96.0); MONO # 0.6 10^3/uL (0.0-0.8); MONO % 7.3 % (0.0-5.0); NEUTROPHILS # 4.8 10^3/uL (1.5-8.5); NEUTROPHILS % 57.2 % (36.0-66.0); PLATELET COUNT, AUTOMATED 364 10^3/uL (150-450); RED BLOOD COUNT 4.38 10^6/uL (4.00-5.40); WHITE BLOOD COUNT 8.4 10^3/uL (4.0-10.0)
[2019-04-26] MEDS ORDERED: ISOVUE-370 76% 100ML VIAL (Q9967) As Ordered ONE (16:54)
[2019-04-26 17:21] LABS: ALBUMIN 4.2 GM/DL (3.2-5.2); ALT/SGPT 27 U/L (12-78); BILIRUBIN,DIRECT < 0.1 MG/DL (0.0-0.2); BILIRUBIN,TOTAL 0.3 MG/DL (0.2-1.0); LIPASE 245 U/L (73-393); TOTAL PROTEIN 7.5 GM/DL (6.4-8.2)
--- NOTE | 2019-04-26 17:32 | REPVR ---
PROCEDURE INFORMATION: Exam: CT Abdomen And Pelvis With Contrast Exam date and time: 04/26/2019 4:17 PM Age: 54 years old Clinical history: Abdominal pain; Additional info: Llq pain TECHNIQUE: Imaging protocol: Computed tomography of the abdomen and pelvis with intravenous contrast. Radiation optimization: All CT scans at this facility use at least one of these dose optimization techniques: automated exposure control; mA and/or kV adjustment per patient size (includes targeted exams where dose is matched to clinical indication); or iterative reconstruction. Contrast material: ISOVUE 370; Contrast volume: 100 ml; Contrast route: IV; COMPARISON: No relevant prior studies available. FINDINGS: Liver: There is a diffuse decrease in hepatic parenchymal density, consistent with fatty infiltration. Gallbladder and bile ducts: There has been a cholecystectomy. Pancreas: Normal. No ductal dilation. Spleen: Normal. No splenomegaly. Adrenals: There is mild bilateral adrenal hyperplasia. Kidneys and ureters: Small right renal cyst measures 9 mm. Stomach and bowel: This patient is status post gastric bypass surgery. Dilated proximal SAKSHI limb demonstrates wall thickening measuring up to 15 mm. No dilatation of the pancreaticobiliary limb. Correlation with upper GI series or endoscopy suggested. No abnormal fluid collections demonstrated. Small bowel sutures in the left lower quadrant. Appendix: No evidence of appendicitis. Intraperitoneal space: Unremarkable. No free air. No significant fluid collection. Vasculature: Unremarkable. No abdominal aortic aneurysm. Lymph nodes: Unremarkable. No enlarged lymph nodes. Bladder: Unremarkable as visualized. Reproductive: Hysterectomy. Bones/joints: The spine demonstrates mild degenerative changes. Mild central spinal stenosis at L2-3, L3-4 with a moderate central spinal stenosis at L4-5. Soft tissues: Unremarkable. IMPRESSION: 1. There is a diffuse decrease in hepatic parenchymal density, consistent with fatty infiltration. 2. There has been a cholecystectomy. 3. This patient is status post gastric bypass surgery. Dilated proximal SAKSHI limb demonstrates abnormal wall thickening . Finding may reflect redundant mucosal however and infiltrating lesion not excluded. Correlation with upper GI series or endoscopy suggested. No abnormal fluid collections demonstrated. 4. There is mild bilateral adrenal hyperplasia. 5. Status post hysterectomy. COMMENT: Consistent with the [place]'s Incidental Findings Committee Report (J Am Nena Radiol 2010): Unless the patient's specific circumstances suggest otherwise, any liver lesion 0.5 cm or less, any cystic kidney lesion less than 1.0 cm, and/or any adrenal lesion 1.0 cm or less not otherwise characterized in this report as possessing suspicious or indeterminate imaging features is/are highly likely to be benign and do not require follow-up imaging or biopsy. Electronically signed by: Maurisio Perdue On 04/26/2019 17:32:06 PM
[2019-04-26] MEDS ORDERED: MULTIVITAMIN -ADULT INJECTION 10 ML, THIAMINE INJection 100 MG, FOLIC ACID 1 MG in NS 1... IV ONE (18:30)
[2019-04-26] MEDS ORDERED: PANTOPRAZOLE 40MG INJ (PROTONIX) (C9113) IV ONE (18:30)
[2019-04-26] MEDS ORDERED: MISO200T56 PO ×2 (21:52→22:03)
[2019-04-26] MEDS ORDERED: OMEP40CA97 PO ×2 (21:52→22:03)
[2019-04-26] MEDS ORDERED: CARA1TAB6 PO ×2 (21:52→22:03)
[2019-04-26 22:03] VITALS: BP 131/66
--- NOTE | 2019-05-01 13:22 | ED PDOC ---
Post-Departure Follow-Up skinny cavazos faxed formal report of ct abd/p for fu. Natalie Diaz MD May 01, 2019 13:22
== END 2019-04-26 22:29 | disposition home or self-care (01) ==
LOC: M ED 15:18
DX: K25.9 Gastric ulcer, unspecified as acute or chronic, without hemorrhage or perforation (principal); I10 Essential (primary) hypertension; E03.9 Hypothyroidism, unspecified; F31.9 Bipolar disorder, unspecified; F41.9 Anxiety disorder, unspecified; G62.9 Polyneuropathy, unspecified; K21.9 Gastro-esophageal reflux disease without esophagitis; Z79.899 Other long term (current) drug therapy; Z88.0 Allergy status to penicillin; Z88.1 Allergy status to other antibiotic agents; Z88.5 Allergy status to narcotic agent; Z91.018 Allergy to other foods
CPT/HCPCS: 74177; 80047; 80076; 81001; 83690; 85025; 87086; 96361; 96374; 96375; 99284; C9113; J1885; J3411; Q9967

== ENCOUNTER → 2019-05-15 | Outpatient (CLI) | payer MEDICARE, MEDICAID ==
[~2019-05-15] MED LIST changes: +B-2100TA PO; +BUPR75TA5; +CARA1TAB6 PO; +CLON0.5T2; +GNP1000C11 PO; +LAMO100T3; +MAGN400T2 PO; +MISO200T56 PO; +MM S100C PO; +OMEP40CA97 PO; +PROC5TA; +QC F0.52 PO; +SUMA6KIT SC; +TIRO112C3; +TROK1CAP7 PO
[2019-05-15 08:25] LABS: BASO # 0.1 10^3/uL (0.0-0.2); BASO % 0.7 % (0.0-1.0); EOS # 0.3 10^3/uL (0.0-0.5); EOS % 3.4 % (0.0-3.0); HEMATOCRIT 39.2 % (36.0-47.0); HEMOGLOBIN 12.7 g/dl (12.0-15.5); LYMPH # 2.3 10^3/uL (1.5-5.0); LYMPH % 26.7 % (24.0-44.0); MEAN CORPUSCULAR HEMOGLOBIN 28.9 pg (27.0-33.0); MEAN CORPUSCULAR HGB CONC 32.4 g/dl (32.0-36.5); MEAN CORPUSCULAR VOLUME 89.1 fl (80.0-96.0); MONO # 0.8 10^3/uL (0.0-0.8); MONO % 8.8 % (0.0-5.0); NEUTROPHILS # 5.3 10^3/uL (1.5-8.5); NEUTROPHILS % 60.2 % (36.0-66.0); PLATELET COUNT, AUTOMATED 379 10^3/uL (150-450); WHITE BLOOD COUNT 8.7 10^3/uL (4.0-10.0)
[2019-05-15 08:27] LABS: HEMATOCRIT 37.7 % (36.0-47.0)
[2019-05-15 09:04] LABS: ALBUMIN 3.9 GM/DL (3.2-5.2); ALT/SGPT 21 U/L (12-78); BILIRUBIN,TOTAL 0.5 MG/DL (0.2-1.0); BLOOD UREA NITROGEN 13 MG/DL (7-18); CALCIUM LEVEL 10.1 MG/DL (8.5-10.1); CARBON DIOXIDE LEVEL 26 MEQ/L (21-32); CHLORIDE LEVEL 104 MEQ/L (98-107); FERRITIN 101 NG/ML (8-252); GLOMERULAR FILTRATION RATE 54.9 (>51); GLUCOSE, FASTING 99 MG/DL (70-100); IRON (FE) 80 UG/DL (50-170); MAGNESIUM LEVEL 2.4 MG/DL (1.8-2.4); PERCENT SATURATION 26.9 % (13.2-45.0); PHOSPHORUS LEVEL 3.5 MG/DL (2.5-4.9); SODIUM LEVEL 137 MEQ/L (136-145); TOTAL IRON BINDING CAPACITY 297 UG/DL (250-450); TOTAL PROTEIN 6.9 GM/DL (6.4-8.2)
[2019-05-15 10:26] LABS: TOTAL 25(OH) VITAMIN D 57.7 NG/ML (30.0-100.0); VITAMIN B12 LEVEL > 2000 PG/ML (247-911)
[2019-05-15 11:14] LABS: HEMOGLOBIN A1c 4.3 %
[2019-05-16 13:56] LABS: RBC FOLATE 1336 NG/ML (280-791)
== END ==
LOC: M LAB 06:56
PROVIDERS: ATTEND Surgery
DX: K91.2 Postsurgical malabsorption, not elsewhere classified (principal); Z98.84 Bariatric surgery status; E55.9 Vitamin D deficiency, unspecified; Z86.39 Personal history of other endocrine, nutritional and metabolic disease; R27.0 Ataxia, unspecified; E53.8 Deficiency of other specified B group vitamins; R10.9 Unspecified abdominal pain

== ENCOUNTER → 2019-05-15 | Outpatient (CLI) | payer MEDICARE, MEDICAID ==
[2019-05-15 08:24] LABS: BASO # 0.1 10^3/uL (0.0-0.2); EOS # 0.3 10^3/uL (0.0-0.5); EOS % 3.5 % (0.0-3.0); HEMATOCRIT 38.7 % (36.0-47.0); HEMOGLOBIN 12.8 g/dl (12.0-15.5); LYMPH # 2.3 10^3/uL (1.5-5.0); MEAN CORPUSCULAR HEMOGLOBIN 29.4 pg (27.0-33.0); MEAN CORPUSCULAR HGB CONC 33.1 g/dl (32.0-36.5); MEAN CORPUSCULAR VOLUME 88.8 fl (80.0-96.0); MONO # 0.8 10^3/uL (0.0-0.8); NEUTROPHILS # 5.4 10^3/uL (1.5-8.5); NEUTROPHILS % 60.2 % (36.0-66.0); PLATELET COUNT, AUTOMATED 370 10^3/uL (150-450); RED BLOOD COUNT 4.36 10^6/uL (4.00-5.40)
[2019-05-15 08:48] LABS: ALT/SGPT 19 U/L (12-78); BILIRUBIN,TOTAL 0.5 MG/DL (0.2-1.0); BLOOD UREA NITROGEN 12 MG/DL (7-18); CALCIUM LEVEL 10.3 MG/DL (8.5-10.1); CARBON DIOXIDE LEVEL 26 MEQ/L (21-32); CHLORIDE LEVEL 105 MEQ/L (98-107); CREATININE FOR GFR 1.12 MG/DL (0.55-1.30); GLOMERULAR FILTRATION RATE 53.8 (>51); GLUCOSE, FASTING 100 MG/DL (70-100); POTASSIUM SERUM 3.1 MEQ/L (3.5-5.1); SODIUM LEVEL 138 MEQ/L (136-145); TOTAL PROTEIN 6.9 GM/DL (6.4-8.2)
[2019-05-15 10:56] LABS: FOLATE > 24.0 NG/ML; VITAMIN B12 LEVEL > 2000 PG/ML
== END ==
LOC: M LAB 06:59
PROVIDERS: ATTEND Psychiatry & Neurology Neurology
DX: R27.0 Ataxia, unspecified (principal); E53.8 Deficiency of other specified B group vitamins

== ENCOUNTER → 2019-05-15 | Outpatient (CLI) | payer MEDICARE, MEDICAID ==
--- NOTE | 2019-05-15 11:07 | REP ---
ABDOMINAL SERIES: Supine erect views of the abdomen demonstrate no evidence of free intraperitoneal air and no evidence of small bowel obstruction. Air and fecal material is scattered through the colon. No dilated small bowel loops are seen. . Metallic clips are seen throughout the abdomen. IMPRESSION: No evidence of free air or obstruction. Electronically Signed by Mateo Rosales MD 05/15/2019 04:22 P
== END ==
LOC: M RAD 10:05 → M LAB 10:05
PROVIDERS: ATTEND Physician Assistant
DX: R10.9 Unspecified abdominal pain (principal)

== ENCOUNTER 2019-05-18 16:27 | Emergency (ER) | payer MEDICARE, MEDICAID ==
[~2019-05-18] VITALS: Ht 160 cm; Wt 68.3 kg
[~2019-05-18 16:27] MED LIST changes: -BUPR75TA5; +BUPR75TA5 PO; -CLON0.5T2; +CLON0.5T2 PO; -HYDR12CA; +HYDR12CA PO; -LAMO100T3; +LAMO100T3 PO; -PROC5TA; +PROC5TA PO; -SING10TA32; +SING10TA32 PO; -TIRO112C3; +TIRO112C3 PO
[2019-05-18] MEDS ORDERED: NS 1,000 ML IV ONE (16:45)
[2019-05-18 17:24] LABS: BASO # 0.1 10^3/uL (0.0-0.2); BASO % 0.8 % (0.0-1.0); EOS # 0.2 10^3/uL (0.0-0.5); EOS % 2.5 % (0.0-3.0); HEMATOCRIT 39.2 % (36.0-47.0); HEMOGLOBIN 13.4 g/dl (12.0-15.5); LYMPH # 2.4 10^3/uL (1.5-5.0); LYMPH % 26.6 % (24.0-44.0); MEAN CORPUSCULAR HEMOGLOBIN 29.1 pg (27.0-33.0); MEAN CORPUSCULAR HGB CONC 34.2 g/dl (32.0-36.5); MONO # 0.7 10^3/uL (0.0-0.8); MONO % 7.6 % (0.0-5.0); NEUTROPHILS # 5.5 10^3/uL (1.5-8.5); NEUTROPHILS % 62.2 % (36.0-66.0); PLATELET COUNT, AUTOMATED 397 10^3/uL (150-450); RED BLOOD COUNT 4.61 10^6/uL (4.00-5.40); WHITE BLOOD COUNT 8.9 10^3/uL (4.0-10.0)
[2019-05-18 17:46] LABS: ALBUMIN 4.1 GM/DL (3.2-5.2); ALT/SGPT 22 U/L (12-78); BILIRUBIN,DIRECT 0.2 MG/DL (0.0-0.2); BILIRUBIN,TOTAL 0.4 MG/DL (0.2-1.0); BLOOD UREA NITROGEN 9 MG/DL (7-18); CALCIUM LEVEL 10.1 MG/DL (8.5-10.1); CARBON DIOXIDE LEVEL 23 MEQ/L (21-32); CHLORIDE LEVEL 101 MEQ/L (98-107); CREATININE FOR GFR 0.97 MG/DL (0.55-1.30); GLOMERULAR FILTRATION RATE > 60.0 (>51); GLUCOSE, FASTING 84 MG/DL (70-100); LIPASE 287 U/L (73-393); POTASSIUM SERUM 3.1 MEQ/L (3.5-5.1); SODIUM LEVEL 135 MEQ/L (136-145); TOTAL PROTEIN 7.4 GM/DL (6.4-8.2)
[2019-05-18] MEDS ORDERED: PANTOPRAZOLE SODIUM 40 MG in D5W 50 ML IV SCH (19:00)
[2019-05-18 21:46] VITALS: BP 110/60
--- NOTE | 2019-05-19 11:13 | REP ---
ACUTE ABDOMINAL SERIES: THREE VIEWS. HISTORY: History of ulcer, left lower quadrant pain. Rule out free air. COMPARISON STUDY: May 15, 2019 FINDINGS: Upright chest radiograph is normal. There is no evidence of infiltrate or free subdiaphragmatic air. Heart size is normal. Pulmonary vasculature is not increased. No significant bony abnormality is seen. Supine and upright views of the abdomen show clips in the upper abdomen bilaterally with sutures in the left upper quadrant. The bowel gas pattern is unremarkable. Air and stool seen in a nondistended colon. No small bowel dilation is observed. Flank stripes and psoas margins are intact. IMPRESSION: Sutures and clips in the upper abdomen. Bowel gas pattern is unremarkable. No evidence of free air. Electronically Signed by Kadeem Lebron MD 05/19/2019 12:08 P
== END 2019-05-18 22:16 | disposition home or self-care (01) ==
LOC: M ED 16:27
DX: K25.3 Acute gastric ulcer without hemorrhage or perforation (principal); I10 Essential (primary) hypertension; K80.20 Calculus of gallbladder without cholecystitis without obstruction; E78.5 Hyperlipidemia, unspecified; Z79.899 Other long term (current) drug therapy; Z88.0 Allergy status to penicillin; Z88.1 Allergy status to other antibiotic agents; Z88.5 Allergy status to narcotic agent; Z88.8 Allergy status to other drugs, medicaments and biological substances; Z91.018 Allergy to other foods; Z98.84 Bariatric surgery status
CPT/HCPCS: 74021; 80048; 80076; 81001; 83605; 83690; 85025; 87086; 96374; 99284; C9113

== ENCOUNTER → 2019-07-12 | Outpatient (CLI) | payer MEDICARE, MEDICAID ==
--- NOTE | 2019-07-12 09:18 | REP ---
Clinical: Chest pain and cough . Comparison: 03/07/2014 . Technique: PA and lateral. Findings: The mediastinum and cardiac silhouette are normal. The lung deluna are clear and without acute consolidation, effusion, or pneumothorax. The skeletal structures are intact and normal. Impression: 1. No acute cardiopulmonary process. Electronically Signed by Yosvany Simeon MD 07/12/2019 09:09 A
== END ==
LOC: M RAD 08:13
PROVIDERS: ATTEND Physician Assistant
DX: R05 Cough (principal); R07.89 Other chest pain

== ENCOUNTER → 2019-07-20 | Outpatient (REF) | payer MEDICARE, MEDICAID | LOC: M SFHCLERA 19:38 | PROVIDERS: ATTEND Nurse Practitioner Family | DX: J02.9 Acute pharyngitis, unspecified (principal) | CPT/HCPCS: 87804; 87880; G0463 ==

== ENCOUNTER 2019-07-26 08:05 | Outpatient (RCR) | payer MEDICARE, MEDICAID | END 2019-07-29 | LOC: M PT 08:05 | PROVIDERS: ATTEND Orthopaedic Surgery | DX: M50.30 Other cervical disc degeneration, unspecified cervical region (principal); M17.11 Unilateral primary osteoarthritis, right knee ==

== ENCOUNTER 2019-08-10 07:30 | Outpatient (RCR) | payer MEDICARE, MEDICAID | END 2019-08-29 | LOC: M PT 07:30 | PROVIDERS: ATTEND Orthopaedic Surgery | DX: Z51.89 Encounter for other specified aftercare (principal); M50.30 Other cervical disc degeneration, unspecified cervical region; M17.11 Unilateral primary osteoarthritis, right knee ==

== ENCOUNTER → 2019-11-14 | Outpatient (CLI) | payer MEDICARE, MEDICAID ==
[2019-11-14 08:08] LABS: HEMOGLOBIN A1c 5.1 %
[2019-11-14 08:19] LABS: CALCIUM LEVEL 9.8 MG/DL (8.5-10.1); CREATININE FOR GFR 1.1 MG/DL (0.55-1.30); FREE T4 1.11 NG/DL (0.76-1.46); GLOMERULAR FILTRATION RATE 54.9 (>51); POTASSIUM SERUM 3.9 MEQ/L (3.5-5.1); THYROID STIMULATING HORMONE 1.81 uIU/ML (0.358-3.740)
[2019-11-14 09:43] LABS: PTH INTACT 138.5 PG/ML (18.5-88.0)
[2019-11-14 10:31] LABS: TOTAL 25(OH) VITAMIN D 43.1 NG/ML (30.0-100.0)
== END ==
LOC: M LAB 07:01
PROVIDERS: ATTEND Physician Assistant
DX: K91.2 Postsurgical malabsorption, not elsewhere classified (principal); E55.9 Vitamin D deficiency, unspecified; E03.9 Hypothyroidism, unspecified

== ENCOUNTER → 2020-09-22 | Outpatient (CLI) | payer MEDICARE, MEDICAID ==
[~2020-09-22] MED LIST changes: -PROC5TA PO; +PROC5TAB57 PO
[2020-09-22 13:02] LABS: CALCIUM LEVEL 10.8 MG/DL (8.5-10.1); CREATININE FOR GFR 1.08 MG/DL (0.55-1.30); GLOMERULAR FILTRATION RATE 55.9 (>51)
== END ==
LOC: M LAB 12:10
PROVIDERS: ATTEND Physician Assistant
DX: E83.52 Hypercalcemia (principal)

== ENCOUNTER → 2020-09-24 | Outpatient (CLI) | payer MEDICARE, MEDICAID ==
--- NOTE | 2020-09-24 17:43 | REP ---
INDICATION: CALCULUS OF KIDNEY. COMPARISON: Comparison abdominal radiographs 15 April 2020.. TECHNIQUE: KUB: Two views. FINDINGS: Bowel gas pattern is normal. There are surgical clips in right upper quadrant, left upper quadrant, and left flank. Psoas margins and flank stripes are intact. No mass or organomegaly is seen. Bowel gas pattern is normal. There is colonic gas overlying the kidneys bilaterally. No urinary tract calculus is visible.. IMPRESSION: No visible urinary tract calculus. Normal bowel gas pattern. <Electronically signed by Ricardo Lebron > 09/24/20 [id number]
== END ==
LOC: M RAD 17:22
PROVIDERS: ATTEND Physician Assistant
DX: N20.0 Calculus of kidney (principal)

== ENCOUNTER 2020-09-29 13:44 | Emergency (ER) | payer MEDICARE, MEDICAID ==
[~2020-09-29] VITALS: Ht 160 cm; Wt 78.2 kg
[2020-09-29] MEDS ORDERED: MISO100T22 (13:53)
[2020-09-29] MEDS ORDERED: LITH300C (13:53)
--- NOTE | 2020-09-29 14:16 | REP ---
INDICATION: CHEST PAIN COMPARISON: 07/12/2019 TECHNIQUE: Portable AP view of the chest FINDINGS: The mediastinum and cardiac silhouette are stable and within normal limits for portable technique. The lung deluna are clear without acute consolidation, effusion, or pneumothorax. Skeletal structures are intact. IMPRESSION: No acute cardiopulmonary process appreciated. <Electronically signed by Yosvany Simeon > 09/29/20 [id number]
[2020-09-29 14:45] LABS: BASO # 0.1 10^3/uL (0.0-0.2); BASO % 0.9 % (0.0-1.0); EOS # 0.1 10^3/uL (0.0-0.5); EOS % 2.5 % (0.0-3.0); HEMATOCRIT 38.5 % (36.0-47.0); HEMOGLOBIN 12.8 g/dl (12.0-15.5); LYMPH % 35.7 % (24.0-44.0); MEAN CORPUSCULAR HEMOGLOBIN 30.2 pg (27.0-33.0); MEAN CORPUSCULAR HGB CONC 33.2 g/dl (32.0-36.5); MEAN CORPUSCULAR VOLUME 90.8 fl (80.0-96.0); MONO # 0.4 10^3/uL (0.0-0.8); NEUTROPHILS % 53.7 % (36.0-66.0); PLATELET COUNT, AUTOMATED 251 10^3/uL (150-450); RED BLOOD COUNT 4.24 10^6/uL (4.00-5.40); WHITE BLOOD COUNT 5.6 10^3/uL (4.0-10.0)
[2020-09-29 14:59] LABS: INR 0.93; PARTIAL THROMBOPLASTIN TIME 28.6 SECONDS (24.2-38.5); PROTHROMBIN TIME 12.7 SECONDS (12.5-14.3)
[2020-09-29 15:15] LABS: ALBUMIN 3.8 GM/DL (3.2-5.2); BILIRUBIN,DIRECT 0.1 MG/DL (0.0-0.2); BILIRUBIN,TOTAL 0.4 MG/DL (0.2-1.0); FREE T4 0.93 NG/DL (0.76-1.46); THYROID STIMULATING HORMONE 2.15 uIU/ML (0.358-3.740)
[2020-09-29] MEDS ORDERED: ISOVUE-370 76% 100ML VIAL As Ordered ONE (16:21)
--- NOTE | 2020-09-29 16:43 | REP ---
INDICATION: chest pain COMPARISON: None. TECHNIQUE: Axial contrast enhanced images from the thoracic inlet to the upper abdomen using pulmonary embolus technique with multiplanar re-formations. 75 ml Isovue 370 intravenous contrast material administered without complication. This CT examination was performed using the following dose reduction techniques: Automated exposure control, adjustment of mA and/or kv according to the patient's size, and use of iterative reconstruction technique. FINDINGS: Satisfactory enhancement of the pulmonary vasculature is achieved and no filling defects are identified to suggest pulmonary embolus. Further evaluation of the mediastinum demonstrates congenital aberrant right subclavian artery with otherwise normal thoracic aorta and no evidence for aneurysm or dissection. Heart and pericardium are normal. The bilateral lung deluna are well aerated and clear without consolidation pleural effusion or pneumothorax. Tracheobronchial tree is patent. No adenopathy noted. Surrounding musculoskeletal structures intact IMPRESSION: No evidence for pulmonary embolus. No acute mediastinal or pleural parenchymal process. Congenital aberrant right subclavian artery. <Electronically signed by Yosvany Simeon > 09/29/20 [id number]
[2020-09-29 17:17] LABS: RSV AMPLIFICATION NEGATIVE (NEGATIVE)
[2020-09-29] MEDS ORDERED: GI COCKTAIL 50ML BTL(HYOSCYAMINE/MAALOX/LIDOCAINE VISCOUS)(1:3:1) PO ONE (18:00)
[2020-09-29] MEDS ORDERED: ACETAMINOPHEN TAB 650MG DOSE (2X325MG) PO ONE (18:00)
[2020-09-29 18:22] VITALS: BP 147/75
--- NOTE | 2020-09-29 19:46 | ECGEPIP ---
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
== END 2020-09-29 18:42 | disposition home or self-care (01) ==
LOC: M ED 13:44
DX: R07.9 Chest pain, unspecified (principal); R06.02 Shortness of breath; I10 Essential (primary) hypertension; E78.5 Hyperlipidemia, unspecified; F33.9 Major depressive disorder, recurrent, unspecified; F41.9 Anxiety disorder, unspecified; Z98.84 Bariatric surgery status; Z79.899 Other long term (current) drug therapy; Z79.890 Hormone replacement therapy; Z88.0 Allergy status to penicillin; Z88.1 Allergy status to other antibiotic agents; Z88.5 Allergy status to narcotic agent; Z91.018 Allergy to other foods
CPT/HCPCS: 36415; 71045; 71275; 80047; 80076; 83690; 83880; 84439; 84443; 84484; 85025; 85610; 85730; 87631; 93005; 93041; 94760; 99285; Q9967

== ENCOUNTER → 2020-10-20 | Outpatient (CLI) | payer MEDICARE, MEDICAID ==
[~2020-10-20] MED LIST changes: +MISO100T22
[2020-10-20 09:13] LABS: ALBUMIN 3.8 GM/DL (3.2-5.2); CALCIUM LEVEL 9.6 MG/DL (8.5-10.1); CREATININE FOR GFR 1.03 MG/DL (0.55-1.30); POTASSIUM SERUM 3.9 MEQ/L (3.5-5.1)
== END ==
LOC: M LAB 08:28
PROVIDERS: ATTEND Physician Assistant
DX: E83.52 Hypercalcemia (principal)

== ENCOUNTER → 2020-12-30 | Outpatient (CLI) | payer MEDICARE, MEDICAID ==
[~2020-12-30] MED LIST changes: +LEVO50TA5 PO; +MIRA3350 PO; +OMEP40CA4 PO; -OMEP40CA97 PO; +SENN-80 PO; +SUMA6CAR SC; -SUMA6KIT SC
== END ==
LOC: M PLAIMG 09:33
PROVIDERS: ATTEND Physician Assistant
DX: M51.9 Unspecified thoracic, thoracolumbar and lumbosacral intervertebral disc disorder (principal); K59.00 Constipation, unspecified

== ENCOUNTER → 2021-01-19 | Outpatient (CLI) | payer MEDICARE, MEDICAID ==
[~2021-01-19] MED LIST changes: -LEVO50TA5 PO; -MIRA3350 PO; -SENN-80 PO; -SUMA6CAR SC; +SUMA6KIT SC
[2021-01-19 09:57] LABS: CREATININE FOR GFR 1.17 MG/DL (0.55-1.30); GLOMERULAR FILTRATION RATE 50.9 (>51); LITHIUM LEVEL 1.13 MEQ/L (0.60-1.20)
== END ==
LOC: M LAB 08:31
PROVIDERS: ATTEND Psychiatry & Neurology Psychiatry
DX: F60.7 Dependent personality disorder (principal); F60.3 Borderline personality disorder; F40.00 Agoraphobia, unspecified; F41.0 Panic disorder [episodic paroxysmal anxiety]; F31.76 Bipolar disorder, in full remission, most recent episode depressed

== ENCOUNTER → 2021-02-21 | Outpatient (REF) | payer MEDICARE, MEDICAID | LOC: M LAB REF 19:00 | PROVIDERS: ATTEND Internal Medicine Gastroenterology | DX: R19.8 Other specified symptoms and signs involving the digestive system and abdomen (principal); K59.00 Constipation, unspecified; K62.89 Other specified diseases of anus and rectum ==

== ENCOUNTER → 2021-03-27 | Outpatient (CLI) | payer MEDICARE, MEDICAID ==
[2021-03-27 08:20] LABS: ALBUMIN 3.7 GM/DL (3.2-5.2); CALCIUM LEVEL 9.8 MG/DL (8.5-10.1); CREATININE FOR GFR 1.12 MG/DL (0.55-1.30); FREE T4 0.92 NG/DL (0.76-1.46); GLOMERULAR FILTRATION RATE 53.4 (>51); POTASSIUM SERUM 3.9 MEQ/L (3.5-5.1); THYROID STIMULATING HORMONE 1.86 uIU/ML (0.358-3.740)
[2021-03-27 08:34] LABS: HEMOGLOBIN A1c 5.1 %
[2021-03-27 09:47] LABS: PTH INTACT 131.9 PG/ML (18.5-88.0); TOTAL 25(OH) VITAMIN D 35.7 NG/ML (30.0-100.0)
== END ==
LOC: M LAB 07:08
PROVIDERS: ATTEND Physician Assistant
DX: E55.9 Vitamin D deficiency, unspecified (principal); K91.2 Postsurgical malabsorption, not elsewhere classified; E03.9 Hypothyroidism, unspecified

== ENCOUNTER → 2021-05-14 | Outpatient (CLI) | payer MEDICARE, MEDICAID ==
[2021-05-14 07:38] LABS: FREE T4 0.93 NG/DL (0.76-1.46); THYROID STIMULATING HORMONE 2.49 uIU/ML (0.358-3.740)
== END ==
LOC: M LAB 06:46
PROVIDERS: ATTEND Physician Assistant
DX: E03.9 Hypothyroidism, unspecified (principal)

== ENCOUNTER 2021-07-14 06:08 | Emergency (ER) | payer MEDICARE, MEDICAID ==
[~2021-07-14] VITALS: Ht 160 cm; Wt 73.7 kg
[~2021-07-14 06:08] MED LIST changes: +SUMA6CAR SC; -SUMA6KIT SC
[2021-07-14] MEDS ORDERED: NS 1,000 ML IV ONE (07:00)
[2021-07-14] MEDS ORDERED: PROMETHAZINE INJ 25 MG/ML VIAL (J2550) IV ONE (07:00)
[2021-07-14] MEDS ORDERED: GASTROGRAFIN SOLUTION 30ML (Q9963) As Ordered ONE (07:30)
[2021-07-14 07:33] LABS: BASO # 0.1 10^3/uL (0.0-0.2); BASO % 0.9 % (0.0-1.0); EOS # 0.3 10^3/uL (0.0-0.5); EOS % 3.7 % (0.0-3.0); HEMATOCRIT 42.2 % (36.0-47.0); HEMOGLOBIN 14.3 g/dl (12.0-15.5); LYMPH # 2.3 10^3/uL (1.5-5.0); LYMPH % 33.6 % (24.0-44.0); MEAN CORPUSCULAR HEMOGLOBIN 30.1 pg (27.0-33.0); MEAN CORPUSCULAR HGB CONC 33.9 g/dl (32.0-36.5); MEAN CORPUSCULAR VOLUME 88.8 fl (80.0-96.0); MONO # 0.5 10^3/uL (0.0-0.8); MONO % 7.7 % (2.0-8.0); NEUTROPHILS # 3.6 10^3/uL (1.5-8.5); PLATELET COUNT, AUTOMATED 276 10^3/uL (150-450); RED BLOOD COUNT 4.75 10^6/uL (4.00-5.40); WHITE BLOOD COUNT 6.7 10^3/uL (4.0-10.0)
[2021-07-14] MEDS: GASTROGRAFIN SOLUTION 30ML (Q9963) PO SCH ×3 (07:36→08:11)
[2021-07-14 07:54] LABS: BILIRUBIN,DIRECT 0.2 MG/DL (0.0-0.2); BILIRUBIN,TOTAL 0.4 MG/DL (0.2-1.0); CALCIUM LEVEL 10.1 MG/DL (8.5-10.1); CREATININE FOR GFR 1.27 MG/DL (0.55-1.30); GLOMERULAR FILTRATION RATE 46.2 (>51); TOTAL PROTEIN 7.1 GM/DL (6.4-8.2)
[2021-07-14] MEDS ORDERED: ISOVUE-370 76% 100ML VIAL As Ordered ONE (08:26)
[2021-07-14] MEDS ORDERED: MAGNESIUM CITRATE 300 ML BTL PO ONE (09:55)
[2021-07-14] MEDS ORDERED: SENN-80 PO (09:57)
[2021-07-14] MEDS ORDERED: MIRA3350 PO (09:57)
[2021-07-14] MEDS ORDERED: POTASSIUM CHLORIDE 10MEQ SR TABLET PO ONE (10:10)
[2021-07-14] MEDS ORDERED: PILL CUTTER 1 EACH XX ONE (10:16)
[2021-07-14 10:20] VITALS: BP 144/79
== END 2021-07-14 10:21 | disposition home or self-care (01) ==
LOC: M ED 06:08
DX: K59.00 Constipation, unspecified (principal); E87.6 Hypokalemia; I10 Essential (primary) hypertension; J45.909 Unspecified asthma, uncomplicated; E03.9 Hypothyroidism, unspecified; F31.9 Bipolar disorder, unspecified; K21.9 Gastro-esophageal reflux disease without esophagitis; Z98.84 Bariatric surgery status; Z79.899 Other long term (current) drug therapy; Z79.890 Hormone replacement therapy; Z88.0 Allergy status to penicillin; Z88.1 Allergy status to other antibiotic agents; Z88.5 Allergy status to narcotic agent; Z91.018 Allergy to other foods; F17.210 Nicotine dependence, cigarettes, uncomplicated
CPT/HCPCS: 36415; 74177; 80048; 80076; 83690; 85025; 96361; 96374; 99284; Q9967

== ENCOUNTER 2021-07-19 19:27 | Emergency (ER) | payer MEDICARE, MEDICAID ==
[~2021-07-19] VITALS: Ht 160 cm; Wt 74.5 kg
[~2021-07-19 19:27] MED LIST changes: +MIRA3350 PO; +SENN-80 PO
[2021-07-19] MEDS ORDERED: LEVO50TA5 PO (19:51)
[2021-07-19 20:19] LABS: BASO # 0.1 10^3/uL (0.0-0.2); BASO % 0.8 % (0.0-1.0); EOS # 0.2 10^3/uL (0.0-0.5); EOS % 2.4 % (0.0-3.0); HEMATOCRIT 38.7 % (36.0-47.0); HEMOGLOBIN 13.1 g/dl (12.0-15.5); LYMPH # 2.5 10^3/uL (1.5-5.0); LYMPH % 32.5 % (24.0-44.0); MEAN CORPUSCULAR HGB CONC 33.9 g/dl (32.0-36.5); MEAN CORPUSCULAR VOLUME 88.8 fl (80.0-96.0); MONO # 0.5 10^3/uL (0.0-0.8); MONO % 7.1 % (2.0-8.0); NEUTROPHILS # 4.4 10^3/uL (1.5-8.5); NEUTROPHILS % 57.1 % (36.0-66.0); PLATELET COUNT, AUTOMATED 248 10^3/uL (150-450); RED BLOOD COUNT 4.36 10^6/uL (4.00-5.40); WHITE BLOOD COUNT 7.6 10^3/uL (4.0-10.0)
[2021-07-19] MEDS: GASTROGRAFIN SOLUTION 30ML PO SCH ×2 (20:27→21:10)
[2021-07-19 20:43] LABS: ALBUMIN 3.8 GM/DL (3.2-5.2); BILIRUBIN,DIRECT 0.1 MG/DL (0.0-0.2); BILIRUBIN,TOTAL 0.4 MG/DL (0.2-1.0); CALCIUM LEVEL 9.5 MG/DL (8.5-10.1); CREATININE FOR GFR 1.16 MG/DL (0.55-1.30); GLOMERULAR FILTRATION RATE 51.3 (>51); POTASSIUM SERUM 3.5 MEQ/L (3.5-5.1); TOTAL PROTEIN 6.4 GM/DL (6.4-8.2)
[2021-07-19] MEDS ORDERED: ISOVUE-370 76% 100ML VIAL As Ordered ONE (21:44)
[2021-07-19 23:30] VITALS: BP 124/74
== END 2021-07-20 00:11 | disposition home or self-care (01) ==
LOC: M ED 19:27
DX: R33.9 Retention of urine, unspecified (principal); I10 Essential (primary) hypertension; J45.909 Unspecified asthma, uncomplicated; K21.9 Gastro-esophageal reflux disease without esophagitis; Z98.84 Bariatric surgery status; Z88.0 Allergy status to penicillin; Z88.1 Allergy status to other antibiotic agents; Z88.5 Allergy status to narcotic agent; Z91.018 Allergy to other foods; Z79.899 Other long term (current) drug therapy; Z79.890 Hormone replacement therapy
CPT/HCPCS: 36415; 51702; 74177; 80048; 80076; 81001; 83605; 83690; 85025; 93041; 99285; Q9963; Q9967

== ENCOUNTER → 2021-08-18 | Outpatient (REF) | payer MEDICARE, MEDICAID ==
[~2021-08-18] MED LIST changes: +LEVO50TA5 PO
[2021-08-18 13:09] LABS: APPEARANCE, URINE HAZY (CLEAR); BACTERIA, URINE AUTO 1+ (NEGATIVE); BILIRUBIN, URINE AUTO NEGATIVE (NEGATIVE); BLOOD, URINE BLOOD NEGATIVE (NEGATIVE); COLOR, URINE YELLOW (YELLOW); GLUCOSE, URINE (UA) AUTO NEGATIVE (NEGATIVE); KETONE, URINE AUTO NEGATIVE (NEGATIVE); LEUKOCYTE ESTERASE, URINE AUTO TRACE (NEGATIVE); MUCUS, URINE SMALL (NEGATIVE); NITRITE, URINE AUTO NEGATIVE (NEGATIVE); PROTEIN, URINE AUTO NEGATIVE (NEGATIVE); RBC, URINE AUTO 0 /HPF (0-3); SPECIFIC GRAVITY URINE AUTO 1.005 (1.002-1.035); SQUAMOUS EPITHELIAL CELL UR AU 0 /HPF (0-6); UROBILINOGEN, URINE AUTO 0.2 mg/dL (0.0-2.0); WBC, URINE AUTO 3 /HPF (0-3)
== END ==
LOC: M SMT 12:29
PROVIDERS: ATTEND Physician Assistant
DX: R30.0 Dysuria (principal)

== ENCOUNTER → 2021-10-07 | Outpatient (CLI) | payer MEDICARE, MEDICAID ==
[2021-10-07 08:56] LABS: ALBUMIN 3.7 GM/DL (3.2-5.2); CALCIUM LEVEL 10.5 MG/DL (8.5-10.1); CREATININE FOR GFR 1.05 MG/DL (0.55-1.30); FREE T4 0.99 NG/DL (0.76-1.46); GLOMERULAR FILTRATION RATE 57.5 (>51); POTASSIUM SERUM 3.9 MEQ/L (3.5-5.1); THYROID STIMULATING HORMONE 1.7 uIU/ML (0.358-3.740)
[2021-10-07 09:35] LABS: PTH INTACT 162.3 PG/ML (18.5-88.0); TOTAL 25(OH) VITAMIN D 48.5 NG/ML (30.0-100.0)
== END ==
LOC: M LAB 07:27
PROVIDERS: ATTEND Physician Assistant
DX: E03.9 Hypothyroidism, unspecified (principal); D35.1 Benign neoplasm of parathyroid gland; E55.9 Vitamin D deficiency, unspecified; Z79.899 Other long term (current) drug therapy

== ENCOUNTER → 2021-10-16 | Outpatient (CLI) | payer MEDICARE, MEDICAID | LOC: M RAD 06:36 | PROVIDERS: ATTEND Internal Medicine Pulmonary Disease | DX: Z12.2 Encounter for screening for malignant neoplasm of respiratory organs (principal); Z87.891 Personal history of nicotine dependence ==

== ENCOUNTER → 2021-10-30 | Outpatient (CLI) | payer MEDICARE, MEDICAID ==
[2021-10-30 11:18] LABS: ALBUMIN 3.8 GM/DL (3.2-5.2); CALCIUM LEVEL 10.7 MG/DL (8.5-10.1); CREATININE FOR GFR 1.05 MG/DL (0.55-1.30); GLOMERULAR FILTRATION RATE 57.5 (>51); POTASSIUM SERUM 4.5 MEQ/L (3.5-5.1)
== END ==
LOC: M LAB 07:39
PROVIDERS: ATTEND Physician Assistant
DX: E83.52 Hypercalcemia (principal)

== ENCOUNTER → 2021-11-11 | Outpatient (CLI) | payer MEDICARE, MEDICAID | LOC: M SOG 08:55 | PROVIDERS: ATTEND Orthopaedic Surgery | DX: M25.552 Pain in left hip (principal) ==

== ENCOUNTER → 2021-12-31 | Outpatient (CLI) | payer MEDICARE, MEDICAID ==
[2021-12-31 07:42] LABS: ALBUMIN 3.7 GM/DL (3.2-5.2); CREATININE FOR GFR 1.23 MG/DL (0.55-1.30); GLOMERULAR FILTRATION RATE 47.9 (>51); POTASSIUM SERUM 3.9 MEQ/L (3.5-5.1)
== END ==
LOC: M LAB 06:22
PROVIDERS: ATTEND Physician Assistant
DX: E83.52 Hypercalcemia (principal)

== ENCOUNTER → 2021-12-31 | Outpatient (CLI) | payer MEDICARE, MEDICAID ==
[2021-12-31 07:44] LABS: ACETONE/KETONE 1.14 MG/DL (<2.81)
[2021-12-31 09:20] LABS: CORTISOL AM 10.9 UG/DL (4.3-22.4)
== END ==
LOC: M LAB 06:15
PROVIDERS: ATTEND Internal Medicine
DX: K91.2 Postsurgical malabsorption, not elsewhere classified (principal); E83.52 Hypercalcemia

== ENCOUNTER → 2022-06-15 | Outpatient (CLI) | payer MEDICARE, MEDICAID | LOC: M PLAIMG 09:01 | PROVIDERS: ATTEND Internal Medicine Pulmonary Disease | DX: R07.89 Other chest pain (principal) ==

== ENCOUNTER → 2022-06-27 | Outpatient (CLI) | payer MEDICARE, MEDICAID ==
[2022-06-27 09:11] LABS: HEMATOCRIT 42.9 % (36.0-47.0); HEMOGLOBIN 13.7 g/dl (12.0-15.5); MEAN CORPUSCULAR HEMOGLOBIN 30.4 pg (27.0-33.0); MEAN CORPUSCULAR HGB CONC 31.9 g/dl (32.0-36.5); MEAN CORPUSCULAR VOLUME 95.3 fl (80.0-96.0); PLATELET COUNT, AUTOMATED 273 10^3/uL (150-450); WHITE BLOOD COUNT 6.5 10^3/uL (4.0-10.0)
[2022-06-27 09:36] LABS: ALBUMIN 3.7 G/DL (3.2-5.2); BILIRUBIN,TOTAL 0.4 MG/DL (0.3-1.2); CALCIUM LEVEL 9.6 MG/DL (8.5-10.1); CREATININE FOR GFR 1.12 MG/DL (0.55-1.30); GLOMERULAR FILTRATION RATE 53.2 (>51); HDL CHOLESTEROL 65.9 MG/DL (>40); LDL CHOLESTEROL 114.3 MG/DL (<100); POTASSIUM SERUM 4.4 MMOL/L (3.5-5.1); TOTAL PROTEIN 6.3 G/DL (5.7-8.2)
[2022-06-27 09:37] LABS: LITHIUM LEVEL 0.52 MMOL/L (0.60-1.20)
[2022-06-27 09:38] LABS: THYROID STIMULATING HORMONE 4.272 uIU/ML (0.55-4.78)
== END ==
LOC: M LAB 08:20
PROVIDERS: ATTEND Physician Assistant
DX: I10 Essential (primary) hypertension (principal); E03.9 Hypothyroidism, unspecified; E78.5 Hyperlipidemia, unspecified; F33.1 Major depressive disorder, recurrent, moderate

== ENCOUNTER → 2022-07-10 | Outpatient (CLI) | payer MEDICARE, MEDICAID | LOC: M LAB 07:06 | PROVIDERS: ATTEND Internal Medicine Pulmonary Disease | DX: J45.20 Mild intermittent asthma, uncomplicated (principal) ==

== ENCOUNTER → 2022-07-16 | Outpatient (CLI) | payer MEDICARE, MEDICAID ==
[2022-07-16 08:08] LABS: CREATININE FOR GFR 1.3 MG/DL (0.55-1.30); GLOMERULAR FILTRATION RATE 44.8 (>51)
== END ==
LOC: M LAB 07:15
PROVIDERS: ATTEND Internal Medicine Pulmonary Disease
DX: R07.89 Other chest pain (principal)

== ENCOUNTER → 2022-07-28 | Outpatient (CLI) | payer MEDICARE, MEDICAID ==
[~2022-07-28] MED LIST changes: +ISOVUE-370 76% 100ML VIAL As Ordered ONE; +MONT-5 PO; -SING10TA32 PO
== END ==
LOC: M RAD 07:54
PROVIDERS: ATTEND Internal Medicine Pulmonary Disease
DX: R07.89 Other chest pain (principal)
CPT/HCPCS: 71275; Q9967

== ENCOUNTER 2022-09-14 11:41 | Emergency (ER) | payer MEDICARE, MEDICAID ==
[~2022-09-14] VITALS: Ht 160 cm; Wt 76.8 kg
[~2022-09-14 11:41] MED LIST changes: -ISOVUE-370 76% 100ML VIAL As Ordered ONE; +SENN-186 PO; -SENN-80 PO
[2022-09-14] MEDS ORDERED: NS 500 ML IV ONE ×2 (12:35→14:00)
[2022-09-14] MEDS ORDERED: ISOVUE-370 76% 100ML VIAL As Ordered ONE (12:49)
[2022-09-14 13:14] LABS: BASO # 0.1 10^3/uL (0.0-0.2); BASO % 0.9 % (0.0-1.0); EOS # 0.2 10^3/uL (0.0-0.5); EOS % 2.2 % (0.0-3.0); HEMATOCRIT 44.2 % (36.0-47.0); HEMOGLOBIN 14.6 g/dl (12.0-15.5); LYMPH # 1.7 10^3/uL (1.5-5.0); LYMPH % 22.1 % (24.0-44.0); MEAN CORPUSCULAR HEMOGLOBIN 29.9 pg (27.0-33.0); MEAN CORPUSCULAR VOLUME 90.4 fl (80.0-96.0); MONO # 0.5 10^3/uL (0.0-0.8); MONO % 6.2 % (2.0-8.0); NEUTROPHILS # 5.3 10^3/uL (1.5-8.5); NEUTROPHILS % 68.2 % (36.0-66.0); PLATELET COUNT, AUTOMATED 317 10^3/uL (150-450); RED BLOOD COUNT 4.89 10^6/uL (4.00-5.40); WHITE BLOOD COUNT 7.8 10^3/uL (4.0-10.0)
[2022-09-14 13:44] LABS: ALBUMIN 4.1 G/DL (3.2-5.2); BILIRUBIN,DIRECT 0.1 MG/DL (<0.4); BILIRUBIN,TOTAL 0.5 MG/DL (0.3-1.2); TOTAL PROTEIN 6.6 G/DL (5.7-8.2)
[2022-09-14 13:46] LABS: LITHIUM LEVEL 1.79 MMOL/L (0.60-1.20)
[2022-09-14] MEDS ORDERED: FLEET ENEMA PR STA (14:13)
[2022-09-14 14:44] VITALS: BP 125/76
== END 2022-09-14 15:41 | disposition home or self-care (01) ==
LOC: M ED 11:41
DX: K59.00 Constipation, unspecified (principal); R78.89 Finding of other specified substances, not normally found in blood; I10 Essential (primary) hypertension; F31.9 Bipolar disorder, unspecified; E03.9 Hypothyroidism, unspecified; J45.909 Unspecified asthma, uncomplicated; Z98.84 Bariatric surgery status; Z88.0 Allergy status to penicillin; Z88.5 Allergy status to narcotic agent; Z88.1 Allergy status to other antibiotic agents; Z91.018 Allergy to other foods; Z79.899 Other long term (current) drug therapy
CPT/HCPCS: 36415; 74177; 80047; 80076; 80175; 80178; 83690; 85025; 93005; 93041; 99285; Q9967

== ENCOUNTER → 2022-09-15 | Outpatient (CLI) | payer MEDICARE, MEDICAID ==
[2022-09-15 08:04] LABS: CALCIUM LEVEL 10.4 MG/DL (8.5-10.1); CREATININE FOR GFR 1.18 MG/DL (0.55-1.30); GLOMERULAR FILTRATION RATE 50.1 (>51); POTASSIUM SERUM 3.8 MMOL/L (3.5-5.1)
[2022-09-15 08:05] LABS: LITHIUM LEVEL 1.33 MMOL/L (0.60-1.20)
== END ==
LOC: M LAB 06:57
PROVIDERS: ATTEND Psychiatry & Neurology Psychiatry
DX: F60.7 Dependent personality disorder (principal); F60.3 Borderline personality disorder; F40.00 Agoraphobia, unspecified; F41.0 Panic disorder [episodic paroxysmal anxiety]; F31.76 Bipolar disorder, in full remission, most recent episode depressed

== ENCOUNTER → 2022-09-30 | Outpatient (CLI) | payer MEDICARE, MEDICAID ==
[2022-09-30 14:08] LABS: MAGNESIUM LEVEL 2.2 MG/DL (1.8-2.4)
[2022-09-30 14:10] LABS: PERCENT SATURATION 25.5 % (13.2-45.0)
[2022-09-30 14:12] LABS: TOTAL 25(OH) VITAMIN D 50.1 NG/ML (20.0-100.0)
== END ==
LOC: M LAB 11:36
PROVIDERS: ATTEND Internal Medicine Gastroenterology
DX: R19.7 Diarrhea, unspecified (principal); R19.8 Other specified symptoms and signs involving the digestive system and abdomen; R10.32 Left lower quadrant pain; K62.89 Other specified diseases of anus and rectum; K44.9 Diaphragmatic hernia without obstruction or gangrene; K58.9 Irritable bowel syndrome, unspecified; R11.0 Nausea; E55.9 Vitamin D deficiency, unspecified; Z79.899 Other long term (current) drug therapy

== ENCOUNTER → 2022-12-12 | Outpatient (REF) | payer MEDICARE, MEDICAID ==
[2022-12-16 21:07] LABS: PANCREATIC ELASTASE STOOL 220 (>200)
== END ==
LOC: M LAB REF 08:08
PROVIDERS: ATTEND Internal Medicine Gastroenterology
DX: R10.32 Left lower quadrant pain (principal); N81.6 Rectocele; K59.4 Anal spasm; M25.552 Pain in left hip

== ENCOUNTER → 2022-12-15 | Outpatient (REF) | payer MEDICARE, MEDICAID | LOC: M LAB REF 11:43 | PROVIDERS: ATTEND Internal Medicine Gastroenterology | DX: R10.32 Left lower quadrant pain (principal); N81.6 Rectocele; K59.4 Anal spasm; M25.552 Pain in left hip ==

== ENCOUNTER → 2022-12-31 | Outpatient (CLI) | payer MEDICARE, MEDICAID ==
[2022-12-31 15:13] LABS: ALBUMIN 3.8 G/DL (3.2-5.2); ALKALINE PHOSPHATASE 91 U/L (46-116); ALT/SGPT 18 U/L (7.0-40); AST/SGOT 15 U/L (<34); BILIRUBIN,TOTAL 0.7 MG/DL (0.3-1.2); BLOOD UREA NITROGEN 16 MG/DL (9-23); CALCIUM LEVEL 10.1 MG/DL (8.5-10.1); CARBON DIOXIDE LEVEL 28 MMOL/L (20-31); CHLORIDE LEVEL 105 MMOL/L (98-107); CHOLESTEROL LEVEL 185 MG/DL (<200); CREATININE FOR GFR 0.97 MG/DL (0.55-1.30); GLOMERULAR FILTRATION RATE > 60.0 (>51); GLUCOSE, FASTING 89 MG/DL (60-100); HDL CHOLESTEROL 55.9 MG/DL (>40); LDL CHOLESTEROL 107.7 MG/DL (<100); NON-HDL-C 129.1 MG/DL; POTASSIUM SERUM 4.3 MMOL/L (3.5-5.1); SODIUM LEVEL 141 MMOL/L (136-145); TOTAL PROTEIN 6.2 G/DL (5.7-8.2); TRIGLYCERIDES LEVEL 107 MG/DL (<150)
== END ==
LOC: M WUC 09:17
PROVIDERS: ATTEND Physician Assistant
DX: E78.5 Hyperlipidemia, unspecified (principal); I10 Essential (primary) hypertension; M25.552 Pain in left hip

== ENCOUNTER 2023-06-09 09:55 | Emergency (ER) | payer MEDICARE, MEDICAID ==
[~2023-06-09] VITALS: Ht 160 cm; Wt 80.2 kg
[~2023-06-09 09:55] MED LIST changes: -MISO100T22; +MISO100T32; -MISO200T56 PO; +MISO200T83 PO
[2023-06-09 11:51] VITALS: BP 126/80; TEMP 99; O2SAT 98
[2023-06-09] MEDS ORDERED: ACETAMINOPHEN 500 MG TAB PO ONE (12:00)
== END 2023-06-09 12:29 | disposition home or self-care (01) ==
LOC: M ED 09:55
DX: S63.501A Unspecified sprain of right wrist, initial encounter (principal); M79.631 Pain in right forearm; W19.XXXA Unspecified fall, initial encounter; Y92.019 Unspecified place in single-family (private) house as the place of occurrence of the external cause; Y93.9 Activity, unspecified; Y99.9 Unspecified external cause status; M85.80 Other specified disorders of bone density and structure, unspecified site; E03.9 Hypothyroidism, unspecified; J45.909 Unspecified asthma, uncomplicated; Z88.0 Allergy status to penicillin; Z88.1 Allergy status to other antibiotic agents; Z88.5 Allergy status to narcotic agent; Z82.49 Family history of ischemic heart disease and other diseases of the circulatory system; Z91.018 Allergy to other foods; Z79.899 Other long term (current) drug therapy; Z79.890 Hormone replacement therapy

== ENCOUNTER 2023-08-03 12:50 | Emergency (ER) | payer MEDICARE, MEDICAID ==
[~2023-08-03] VITALS: Ht 160 cm; Wt 80.9 kg
[2023-08-03 13:06] VITALS: BP 136/87; TEMP 98.1; O2SAT 99
== END 2023-08-03 16:08 | disposition left against medical advice (07) ==
LOC: M ED 12:50
DX: Z53.21 Procedure and treatment not carried out due to patient leaving prior to being seen by health care provider (principal)

== ENCOUNTER → 2023-12-10 | Outpatient (REF) | payer MEDICARE, MEDICAID ==
[2023-12-15 15:33] LABS: HPV APTIMA Not Detected (Not Detected)
== END ==
LOC: M SFHCWAGY 13:09
PROVIDERS: ATTEND Nurse Practitioner Family
DX: Z12.4 Encounter for screening for malignant neoplasm of cervix (principal); R87.610 Atypical squamous cells of undetermined significance on cytologic smear of cervix (ASC-US)
CPT/HCPCS: 87624; G0123

== ENCOUNTER → 2024-02-11 | Outpatient (CLI) | payer MEDICARE, MEDICAID ==
[~2024-02-11] MED LIST changes: -ACIP1TAB; +RABE20TA88; +TROK100C PO; -TROK1CAP7 PO
[2024-02-11 10:33] LABS: CHOLESTEROL RISK RATIO 3.24 (<5); HDL CHOLESTEROL 61.3 MG/DL (>40); LDL CHOLESTEROL 121.3 MG/DL (<100); NON-HDL-C 137.7 MG/DL
== END ==
LOC: M PLALAB 07:21
PROVIDERS: ATTEND Physician Assistant
DX: I65.23 Occlusion and stenosis of bilateral carotid arteries (principal)

== ENCOUNTER → 2024-02-11 | Outpatient (CLI) | payer MEDICARE, MEDICAID ==
[2024-02-11 10:32] LABS: CREATININE FOR GFR 1.06 MG/DL (0.55-1.30); GLOMERULAR FILTRATION RATE 56.3 (>45); LITHIUM LEVEL 0.97 MMOL/L (1.0-1.20)
== END ==
LOC: M PLALAB 07:26
PROVIDERS: ATTEND Psychiatry & Neurology Psychiatry
DX: F60.7 Dependent personality disorder (principal); F60.3 Borderline personality disorder; F40.00 Agoraphobia, unspecified; F41.0 Panic disorder [episodic paroxysmal anxiety]; F31.76 Bipolar disorder, in full remission, most recent episode depressed

== ENCOUNTER → 2024-02-22 | Outpatient (CLI) | payer MEDICARE, MEDICAID ==
[2024-02-22 10:27] LABS: ALBUMIN 3.7 G/DL (3.2-5.2); BLOOD UREA NITROGEN 15 MG/DL (9-23); CALCIUM LEVEL 9.8 MG/DL (8.3-10.6); CARBON DIOXIDE LEVEL 28 MMOL/L (20-31); CHLORIDE LEVEL 110 MMOL/L (98-107); GLOMERULAR FILTRATION RATE > 60.0 (>45); GLUCOSE, FASTING 92 MG/DL (74-106); POTASSIUM SERUM 4.5 MMOL/L (3.5-5.1); SODIUM LEVEL 142 MMOL/L (136-145)
[2024-02-22 10:28] LABS: FREE T4 1.26 NG/DL (0.89-1.76)
[2024-02-22 10:29] LABS: THYROID STIMULATING HORMONE 0.747 uIU/ML (0.55-4.78); TOTAL 25(OH) VITAMIN D 30.4 NG/ML (20.0-100.0)
[2024-02-22 10:33] LABS: PTH INTACT 226.4 PG/ML (18.5-88.0)
== END ==
LOC: M PLALAB 07:06
PROVIDERS: ATTEND Internal Medicine
DX: E16.2 Hypoglycemia, unspecified (principal); E07.9 Disorder of thyroid, unspecified

== ENCOUNTER → 2024-06-07 | Outpatient (CLI) | payer MEDICARE, MEDICAID ==
[2024-06-07 11:16] LABS: CHOLESTEROL RISK RATIO 2.52 (<5); HDL CHOLESTEROL 58.9 MG/DL (>40); LDL CHOLESTEROL 73.7 MG/DL (<100); NON-HDL-C 90.1 MG/DL
== END ==
LOC: M PLALAB 07:13
PROVIDERS: ATTEND Internal Medicine Cardiovascular Disease
DX: E78.49 Other hyperlipidemia (principal)

== ENCOUNTER → 2025-01-10 | Outpatient (REF) | payer MEDICARE, MEDICAID ==
[~2025-01-10] MED LIST changes: +HYDR12.510 PO; -HYDR12CA PO
== END ==
LOC: M SFHCWAGY 15:05
PROVIDERS: ATTEND Nurse Practitioner Family
DX: R10.2 Pelvic and perineal pain (principal)

== ENCOUNTER → 2025-01-19 | Outpatient (CLI) | payer MEDICARE, MEDICAID ==
[2025-01-19 07:43] LABS: CREATININE FOR GFR 1.09 MG/DL (0.55-1.30); GLOMERULAR FILTRATION RATE 58.2 (>45)
[2025-01-19 07:45] LABS: LITHIUM LEVEL 1.03 MMOL/L (1.0-1.20)
== END ==
LOC: M LAB 06:15
PROVIDERS: ATTEND Psychiatry & Neurology Psychiatry
DX: F60.7 Dependent personality disorder (principal); F60.3 Borderline personality disorder; F40.00 Agoraphobia, unspecified; F41.0 Panic disorder [episodic paroxysmal anxiety]

== ENCOUNTER → 2025-01-31 | Outpatient (CLI) | payer MEDICARE, MEDICAID ==
[2025-01-31 07:05] LABS: PLATELET COUNT, AUTOMATED 270 10^3/uL (150-450)
[2025-01-31 07:38] LABS: C REACTIVE PROTEIN QUANTITATIV < 0.50 MG/DL (<1.0)
[2025-01-31 07:39] LABS: ALT/SGPT 24 U/L (7.0-40); AST/SGOT 23 U/L (<34); CALCIUM LEVEL 10.3 MG/DL (8.3-10.6); CARBON DIOXIDE LEVEL 29 MMOL/L (20-31); CHLORIDE LEVEL 105 MMOL/L (98-107); CREATININE FOR GFR 1.13 MG/DL (0.55-1.30); GLOMERULAR FILTRATION RATE 55.4 (>45); POTASSIUM SERUM 4.4 MMOL/L (3.5-5.1); SODIUM LEVEL 141 MMOL/L (136-145)
[2025-01-31 07:40] LABS: ERYTHROCYTE SEDIMENTATION RATE 11 mm/hr (0-30)
== END ==
LOC: M LAB 06:08
PROVIDERS: ATTEND Internal Medicine Gastroenterology
DX: K59.1 Functional diarrhea (principal)

== ENCOUNTER → 2025-03-22 | Outpatient (CLI) | payer MEDICARE, MEDICAID ==
[2025-03-22 07:00] LABS: ESTIMATED AVERAGE GLUCOSE 103.0 MG/DL (60-110)
[2025-03-22 07:17] LABS: TOTAL 25(OH) VITAMIN D 23.8 NG/ML (20.0-100.0)
[2025-03-22 07:18] LABS: FREE T4 1.18 NG/DL (0.89-1.76)
[2025-03-22 07:29] LABS: CALCIUM LEVEL 9.0 MG/DL (8.3-10.6); CARBON DIOXIDE LEVEL 27.0 MMOL/L (20-31); CHLORIDE LEVEL 106.0 MMOL/L (98-107); CREATININE FOR GFR 1.11 MG/DL (0.55-1.30); GLOMERULAR FILTRATION RATE 56.6 (>45); POTASSIUM SERUM 3.8 MMOL/L (3.5-5.1); PTH INTACT 629.3 PG/ML (18.5-88.0); SODIUM LEVEL 142.0 MMOL/L (136-145)
== END ==
LOC: M LAB 06:24
PROVIDERS: ATTEND Nurse Practitioner Family
DX: E16.2 Hypoglycemia, unspecified (principal); E03.9 Hypothyroidism, unspecified; E21.3 Hyperparathyroidism, unspecified; M81.0 Age-related osteoporosis without current pathological fracture; E55.9 Vitamin D deficiency, unspecified